=== PATIENT | female | born 1930 | race Caucasian/White ===

== ENCOUNTER → 2017-02-14 | Outpatient (CLI) | payer OTHER ==
[2017-02-14 11:54] LABS: BUN/CREATININE RATIO 26.25 (6-20)
== END ==
LOC: MOB LAB 10:43
PROVIDERS: ATTEND Nurse Practitioner Family
DX: E03.9 Hypothyroidism, unspecified (principal); I10 Essential (primary) hypertension; R09.02 Hypoxemia; I73.9 Peripheral vascular disease, unspecified
CPT/HCPCS: 36415; 80048; 84443; 99213; G0463

== ENCOUNTER → 2017-03-12 | Outpatient (CLI) | payer OTHER ==
--- NOTE | 2017-03-12 17:47 | DI ---
MRI BRAIN W/CN,03/12/2017 10:52 AM: Clinical History: Tumor followup. Previous Exam: September 03, 2016 and April 05, 2016 Findings: Multiplanar MR images are obtained through the brain following the intravenous administration of 12 m L of ProHance gadolinium contrast. There is a curvilinear area of enhancement within the left temporal lobe, which has remained unchange d dating back to March 2016. There is no evidence of hemorrhage there is no mass effect. There is mild stable diffuse age-related volume loss. Intraorbital structures are unremarkable. The paranasal sinus es are unremarkable. Impression: No significant change since the prior examinations.
== END ==
LOC: MRI 10:48
PROVIDERS: ATTEND Radiology Radiation Oncology
DX: D43.0 Neoplasm of uncertain behavior of brain, supratentorial (principal)
CPT/HCPCS: 70552

== ENCOUNTER → 2017-04-25 | Outpatient (CLI) | payer OTHER ==
--- NOTE | 2017-04-25 11:11 | DI ---
VENOUS DOPPLER ULTRASOUND OF THE RIGHT LOWER EXTREMITY, 04/25/2017 10:05 AM: Clinical History: Pain and swelling of the right lower extremity. Previous Exam: None. Technique: 2D real-time imaging is supplemented with color Doppler ultrasound. Compression and augmen tation maneuvers were performed. The long saphenous vein is normal. Reading: No evidence of deep venous thrombosis.
== END ==
LOC: US 09:59
PROVIDERS: ATTEND Internal Medicine Medical Oncology
DX: M79.661 Pain in right lower leg (principal); R22.41 Localized swelling, mass and lump, right lower limb
CPT/HCPCS: 93971

== ENCOUNTER 2017-07-30 11:00 | Observation (INO) ==
[2017-07-30] MEDS ORDERED: Sodium Chloride 0.9% 1,000 ML PRIMARY IV ONE (11:36)
[2017-07-30] MEDS ORDERED: NORMAL SALINE 10 ML SYRINGE FLUSH IVP PRN ×2 (11:36→14:10)
--- NOTE | 2017-07-30 11:54 | EKG ---
[address] [place] [address] Measurements Intervals [place] Rate: 75 P: 77 WV: 167 QRS: -24 QRSD: 139 T: -36 QT: 422 QTc: 452 Interpretive Statements SINUS RHYTHM INDETERMINATE AXIS RIGHT BUNDLE BRANCH BLOCK [120+ ms QRS DURATION, UPRIGHT V1, 40+ ms S IN I/aVL/V4/V5/V6] MODERATE T-WAVE ABNORMALITY, CONSIDER INFERIOR ISCHEMIA [-0.1+ mV T WAVE IN II/aVF] No previous ECG available for comparison Electronically Signed On 07-31-17 08:23:18 MDT by Samuel Gilmore MD [email or web address]
[2017-07-30 12:06] LABS: BASOPHILS # (AUTO) 0.02 10*3/UL; BASOPHILS % (AUTO) 0.2 % (0-1); EOSINOPHILS # (AUTO) 0.12 10*3/UL; EOSINOPHILS % (AUTO) 1.3 % (0-8); Hematocrit [HCT] 44.1 % (37.0-47.0); Hemoglobin [HGB] 14.8 g/dL (12.0-16.0); LYMPHOCYTES # (AUTO) 1.06 10*3/uL; MEAN CORPUSCULAR HEMOGLOBIN 30.6 PG (27-31); MEAN CORPUSCULAR HGB CONC 33.6 g/dL (33-37); MEAN CORPUSCULAR VOLUME 91.1 FL (81-99); MEAN PLATELET VOLUME 10.5 FL (7.4-12.2); MONOCYTES # (AUTO) 0.92 10*3/UL (0.3-0.8); MONOCYTES % (AUTO) 9.7 % (5-15); NEUTROPHILS # (AUTO) 7.38 10*3/UL; NEUTROPHILS % (AUTO) 77.6 % (50-80); PLATELET MORPHOLOGY COMMENT NORMAL MORPHOLOGY (NORM); RBC MORPHOLOGY COMMENT NORMAL MORPHOLOGY (NORM); RED BLOOD COUNT 4.84 10^6/uL (4.20-5.40); WBC MORPHOLOGY COMMENT NORMAL MORPHOLOGY (NORM)
[2017-07-30 12:10] LABS: BLOOD UREA NITROGEN 16 mg/dL (7-22); BUN/CREATININE RATIO 22.85 (6-20); MAGNESIUM 1.9 mg/dL (1.6-2.4); SERUM ALBUMIN 4.7 g/dL (3.5-4.8)
--- NOTE | 2017-07-30 12:38 | DI ---
CT Head WO Contrast,07/30/2017 11:36 AM: Clinical History: Confusion. Previous Exam: December 28, 2015 Findings: Multiple helically acquired CT images are obtained through the brain without contrast, and demonstrat e postsurgical changes of the left temporal lobe consistent with diffuse encephalomalacia. There has been interval removal of a calcified mass arising from the inner table of the temporal bone . There are craniotomy changes within the temporal bone. Impression: 1. No acute intracranial process. 2. Status post craniotomy and left temporal lobe encephalomalacia
[2017-07-30 12:52] LABS: BILIRUBIN,URINE NEGATIVE (NEG); CLARITY,URINE CLEAR (CLEAR); COLOR,URINE YELLOW (Y); GLUCOSE, URINE (UA) NEGATIVE (NEG); NITRATE,URINE NEGATIVE (NEG); OCCULT BLOOD,URINE Trace-intact (NEG); PROTEIN,URINE NEGATIVE (NEG); UROBILINOGEN,URINE 0.2 EU/dL (0.2)
[2017-07-30 12:55] LABS: RBC,URINE 0-1 /hpf; SQUAMOUS EPITHELIAL CELL,UR RARE; URINE SAMPLE TYPE CLEAN CATCH URINE; WBC,URINE 0-1
--- NOTE | 2017-07-30 13:18 | PDOC ---
General Adult HPI - General Chief Complaint: General Medical Stated Complaint: CONFUSED Date Seen by Provider: 07/30/17 Time Seen by Provider: 11:10 Source: POSITIVE: Patient, Other (daughter) Exam Limitations: POSITIVE: No limitations Nurse's Notes Reviewed & Considered: Yes - History of Present Illness Initial Comment: The patient is an 87-year-old female who is brought to the emergency department by her daughter with concerns about increased confusion and difficulty with her speech. The patient's daughter reports that when she went to check on her this morning she noticed that she seemed more confused than usual. She also seems to be using the wrong words that times which is not normal for her. On arrival the patient states that she feels well and has no complaints. The patient's daughter reports that she did have a brain tumor that was removed a year and a half ago in [place] and she did undergo some prophylactic chemotherapy treatments afterward. All of these have been completed last year. The patient currently denies any headache, change in vision, chest pain, shortness of breath , abdominal pain, urinary complaints, fever, recent trauma or illness. She normally uses a walker to ambulate and she seems baseline in her ambulation. Have you received a tetanus shot in the past 10 years?: Unknown - Patient Home Medications Home Medications: Home Medications Oxygen (O2) 1 unit RICHAR DAILY #2 unit 08/09/15 Levothyroxine Sodium 1 tab PO QD #30 tab 02/14/17 Olmesartan/Hydrochlorothiazide [Benicar Hct] 1 tab PO QD #30 tab 02/14/17 - Patient Allergies Allergies/Adverse Reactions: Allergies 3 Allergy/AdvReac Type Severity Reaction Status Date / Time METHIOLATE Allergy Intermediate RASH Uncoded 07/30/17 14:53 Past Medical History - heen HEENT History: Denies History Cardiovascular History: Hypertension, DVTs Respiratory History: Home Oxygen Use Gastrointestinal History: Denies History Genitourinary History: Denies History Endocrine History: Hypothyroidism Musculoskeletal History: Other (please comment) Additional Musculoskeletal History: USES WALKER Neurological History: Other (please comment) Additional Neurological History: BENIGN BRAIN TUMOR Blood Disorders: Denies History Psychiatric History: Denies History Female Reproductive History: Denies History Obstetrical History: Denies History Cancer History: Denies History In Past Year Been Physically Harmed or Verbally Threatened: No History of MDRO: No Tobacco Use: Never Smoker Alcohol Use: None In the Past 12 Months, Have Used or Abuse Any Substance: None Previous Surgical History: No Significant Family History: No pertinent family hx Past Medical History Reviewed: Reviewed - No Changes ROS - Limitations ROS Limitations: No Limitations Constitution: DENIES: Chills, Fever Cardiovascular: DENIES: Chest Pain, Heart Racing, Heart Palpitations, Edema Respiratory: REPORTS: Other (She does apparently wear oxygen at home however not all the time.). DENIES: Cough Non Productive, Cough Productive, Shortness Of Breath Neurological: REPORTS: Confusion. DENIES: Headache, Numbness, Weakness Gastrointestinal: DENIES: Abdominal Pain, Nausea, Vomitting, Diarrhea Endocrine: REPORTS: Denies Symptoms Musculoskeletal: REPORTS: Denies MS Symptoms Genitourinary: REPORTS: Denies Symptoms Eyes: REPORTS: Denies Symptoms ENT: REPORTS: Denies Symptoms Skin: DENIES: Rash General Adult Exam - General Appearance General Appearance: POSITIVE: Alert, Cooperative, No Acute Distress - HEENT HEENT: POSITIVE: Head Inspection Nml, Eyes Inspection Nml, Ears Inspection Nml, Pharynx Inspect. Nml, PERRL, EOMI - Neck Neck: POSITIVE: Normal Inspection. NEGATIVE: Lymphadenopathy - Respiratory Respiratory: POSITIVE: No Respiratory Distress, Breath Sounds Normal - Cardiovascular Cardiovascular: POSITIVE: Regular Rate & Rhythm, No Murmur Peripheral Pulses: Dorsalis-pedis (R): 2+, Dorsalis-pedis (L): 2+ - Abdomen Abdomen: Soft: (All Quadrants), Denies Tenderness: (All Quadrants), No Distention: (All Quadrants) - Skin Skin: POSITIVE: Normal Color, No Rash - Extremities Extremity: Normal ROM: (All Extremities), Normal Inspection: (All Extremities) - Neurological / Psychological Neurological: POSITIVE: Other (The patient is awake and alert, she does not have any apparent focal deficits in the extremities, cranial nerves appear to be intact. The patient's speech is normal for the most part however at times she gets lost in her responses and she has a difficult time finding words at times. She also uses inappropriate words such as referring to her pants as her coat and her oxygen as [place] in her nose.) General Adult Progress - Results Reviewed by me Xrays/CTs/US Reviewed by me: Yes Discussed with Radiologist: Yes Radiology Findings: CT scan of the head without contrast reveals postsurgical changes from previous tumor removal with no acute intracranial hemorrhage or acute findings per radiologist. Lab Results Reviewed by Me: Yes CBC and BMP: 07/30/17 11:47 07/30/17 11:47 EKG Interpretation:: POSITIVE: Normal Sinus Rhythm, Normal Rate, Normal ST/T, Other (Right bundle branch block) - Patient's Progress MDM / ED Course: Lab work, urinalysis, EKG and head CT were obtained. These are all essentially unremarkable. The patient continues to have difficulty finding certain words. There is some concern that she may have had a small CVA. I did recommend admission for further workup and evaluation. Dr. Thompson has agreed to admit the patient for observation. He did recommend ordering an MRI of the brain and MRA of the carotids which was done however will not be done until later this afternoon. These findings and recommendations were discussed with the patient and her daughter and they are in agreement with current plan. - Consult Counseled: POSITIVE: Patient, Family, RE: Lab Results, RE: Radiology Results, RE : DX Patient Care Time - Estimated PCT Patient Care Time (In Minutes): 35 Vital Signs - Recent Vital Signs Vital Signs: Vital Signs (Last 8 hours) Temp Pulse Resp BP Pulse Ox 07/30/17 15:51 91 07/30/17 11:01 98.9 F 82 18 168/92 92 - VS Reviewed Vital Signs Reviewed: Yes Discharge Clinical Impression: Altered mental status Discharge Disposition: Admit to Observation Condition: Fair
[2017-07-30] MEDS ORDERED: OLMESARTAN PO SCH (14:10)
[2017-07-30] MEDS ORDERED: ONDANSETRON 4 MG/2 ML VIAL IVP PRN (14:10)
[2017-07-30] MEDS ORDERED: HYDROCHLOROTHIAZIDE PO SCH (14:10)
[2017-07-30] MEDS ORDERED: LIDOCAINE W/ SODIUM BICARB 0.5 ML SYR SUBD PRN (14:10)
[2017-07-30] MEDS ORDERED: IBUPROFEN 600 MG TABLET PO PRN (14:10)
[2017-07-30] MEDS: Sodium Chloride 0.9% 1,000 ML PRIMARY IV SCH (15:30)
--- NOTE | 2017-07-30 16:37 | PDOC ---
HPI - History of Present Illness History of Present Illness: This very nice 87-year-old female with past medical history significant for brain mass cancer which was removed surgically and had some prophylactic chemotherapy this all have been the completed last year she was brought to the emergency room because her daughter was concerned about her being confused and with some difficulty with her speech. She seems stable at present time she denies any chest pain nausea vomiting vision changes or headaches. Last 2 MRIs were reviewed there is no significant change CT scan of her head no bleed as we speak she is in the MRI scanner Past Medical History Medical History: Hypothyroidism Surgical History: Status post brain cancer resection with prophylactic chemotherapy in 2016 Past Social History: no alcohol or tobacco use lives at [facility] Tobacco Use: Never Smoker In the Past 12 Months, Have Used or Abuse Any of the Following Substance: None Medication / Allergies Home Medications: Home Medications Medication Instructions Recorded Confirmed Type Oxygen (O2) 1 unit RICHAR DAILY #2 unit 08/09/15 07/30/17 History Levothyroxine Sodium 1 tab PO QD #30 tab 02/14/17 07/30/17 Rx Olmesartan/Hydrochlorothiazide 1 tab PO QD #30 tab 02/14/17 07/30/17 Rx [Benicar Hct] Allergies/Adverse Reactions: Allergies 3 Allergy/AdvReac Type Severity Reaction Status Date / Time METHIOLATE Allergy Intermediate RASH Uncoded 07/30/17 14:53 Review of Systems - Review of Systems All Systems: Reviewed & No Additional Complaints Except as Stated - Respiratory Respiratory: DENIES: Negative System Review, Cough, Sputum, Dyspnea At Rest, Dyspnea with Exertion, Pleuritic Pain, Hemoptysis, Wheezing, Other, See HPI - Cardiovascular Cardiovascular: DENIES: Negative System Review, Chest Pain, Edema, Syncope, Palpitations, Orthopnea, Paroxysmal Nocturnal Dyspnea, Other, See HPI - Gastrointestinal Gastrointestinal / Abdominal: DENIES: Negative System Review, Nausea, Vomiting, Diarrhea, Constipation, Abdominal Pain, Bloody Stool, Poor Appetite, Heartburn, Regurgitation, Bloating, Lactose Intolerance, Melena, Bright Red Blood per Rectum, Other, See HPI - Musculoskeletal Musculoskeletal: DENIES: Negative System Review, Back Pain, Neck Pain, Joint Swelling, Calf Pain, Muscle Pain, Cramping, Joint Pain - Hands, Joint Pain - Elbows, Joint Pain - Shoulders, Joint Pain - Hips, Joint Pain - Knees, Joint Pain - Feet, AM Stiffness, Other, See HPI - Neurological Neurologic: REPORTS: Confusion Exam - Vitals Vital Signs: Vital Signs Pulse Rate [Apical] 84 Respiratory Rate 20 Pulse Ox 91 Oxygen Flow Rate 91 Oxygen Delivery Method Room Air Height 4 ft 9 in Weight 141 lb - General General Appearance: No Acute Distress, Cooperative - Head Head Exam: Normal Inspection, Normocephalic, Atraumatic - Eye Eye Exam: POSITIVE: PERRL, EOMI - Respiratory Respiratory Exam: POSITIVE: Clear to Auscultation - Bilaterally, Breathing Non Labored, Normal To Percussion, Normal to Percussion and Palpation - Cardiovascular Cardiovascular Exam: POSITIVE: RRR, No Murmur, No Clicks, No Gallops - GI/Abdominal GI/Abdominal Exam: POSITIVE: Normal Bowel Sounds, Non Tender, Non Distended, Soft - Extremities Extremities Exam: POSITIVE: No Clubbing Present, No Edema Present, No Cyanosis Present Results - Labs CBC and BMP: 07/30/17 11:47 07/30/17 11:47 Assessment and Plan - Patient Problems (1) Altered mental status Current Visit: Yes Status: Acute Code(s): R41.82 - Altered mental status, unspecified (2) Hypertension Current Visit: No Status: Acute Code(s): I10 - Essential (primary) hypertension Qualifiers: Hypertension type: essential hypertension Qualified Code(s): I10 - Essential (primary) hypertension - Assessment / Plan Additional Assessment/Plan Details: Altered mental state we will order MRI/MRA may sure patient did not have a CVA this could definitely recommend the TIA and now it is resolving continue to observe patient further treatment according to the MRI scans I just reviewed the MRI scans that no CVA reported
--- NOTE | 2017-07-30 16:51 | DI ---
MRI Brain WO Contrast,07/30/2017 2:56 PM: Clinical History: Confusion Previous Exam: 03/12/2017 and September 03, 2016 Findings: Multiplanar MR images are obtained through the brain without contrast, and demonstrate diffuse age-re lated volume loss. There is some hyperintense T1 curvilinear density involving the periphery of the t emporal lobe most consistent with prior encephalomalacia. This is in an area where there is a prior m ass which has been surgically removed. There is no new neoplasm identified. There are areas of increased FLAIR and T2 signal scattered throughout the white matter bilaterally. The intraorbital structures are unremarkable. Paranasal sinuses are unremarkable as well. There is no mass nor hemorrhage. The cerebellopontine angles are unremarkable. There is no abnormally restricted diffusion. Impression: 1. Postsurgical changes within the left temporal lobe. 2. No acute ischemia. 3. No evidence of neoplasm although this is somewhat limited due to lack of intravenous contrast.
[2017-07-31] MEDS: Sodium Chloride 0.9% 1,000 ML PRIMARY IV SCH ×2 (00:37→10:23)
[2017-07-31 04:44] LABS: BASOPHILS # (AUTO) 0.01 10*3/UL; BASOPHILS % (AUTO) 0.2 % (0-1); EOSINOPHILS # (AUTO) 0.04 10*3/UL; EOSINOPHILS % (AUTO) 0.6 % (0-8); Hematocrit [HCT] 38.3 % (37.0-47.0); Hemoglobin [HGB] 12.6 g/dL (12.0-16.0); LYMPHOCYTES # (AUTO) 0.61 10*3/uL; MEAN CORPUSCULAR HEMOGLOBIN 29.9 PG (27-31); MEAN CORPUSCULAR HGB CONC 32.9 g/dL (33-37); MEAN CORPUSCULAR VOLUME 90.8 FL (81-99); MEAN PLATELET VOLUME 10.5 FL (7.4-12.2); MONOCYTES # (AUTO) 0.43 10*3/UL (0.3-0.8); MONOCYTES % (AUTO) 6.5 % (5-15); NEUTROPHILS # (AUTO) 5.55 10*3/UL; NEUTROPHILS % (AUTO) 83.3 % (50-80); RED BLOOD COUNT 4.22 10^6/uL (4.20-5.40)
[2017-07-31 05:17] LABS: PLATELET MORPHOLOGY COMMENT NORMAL MORPHOLOGY (NORM); RBC MORPHOLOGY COMMENT NORMAL MORPHOLOGY (NORM); WBC MORPHOLOGY COMMENT SEE COMMENTS (NORM)
[2017-07-31] MEDS ORDERED: LEVOTHYROXINE 25 MCG TABLET PO SCH (05:30)
[2017-07-31] MEDS ORDERED: BENAZEPRIL 10 MG TABLET PO SCH (09:00)
[2017-07-31] MEDS ORDERED: OXYGEN 1 UNIT ENOS SCH (09:00)
[2017-07-31] MEDS ORDERED: AmLODIPine Tab 5 MG TABLET PO SCH (09:00)
[2017-07-31 12:03] VITALS: BP 119/62; RESP 20; TEMP 97.6; O2SAT 97
--- NOTE | 2017-07-31 12:30 | DCSUMMARY ---
Hospitalization Summary Admit Date: 07/30/17 Discharge Date: 07/31/17 Primary Diagnosis:: TIA Secondary Diagnosis:: Confusion Hospital Course: Final Discharge Diagnosis: Current Visit Problems Problem Status Onset Code Altered mental status Acute R41.82 Diagnostic Data, Laboratory Data, and Procedures of Signifigance: Laboratory Results 07/30/17 07/30/17 07/30/17 Range/Units 11:47 11:47 11:47 WBC 9.51 (4.8-10.8) 10^3/uL RBC 4.84 (4.20-5.40) 10^6/uL Hgb 14.8 (12.0-16.0) g/dL Hct 44.1 (37.0-47.0) % MCV 91.1 (81-99) FL MCH 30.6 (27-31) PG MCHC 33.6 (33-37) g/dL RDW Std Deviation 45.1 (39-50) fL RDW Coeff of Gwen 13.7 (11.5-14.5) % Plt Count 266 (140-350) 10*3/uL MPV 10.5 (7.4-12.2) FL Immature Gran % (Auto) 0.1 (0-5) % Neut % (Auto) 77.6 (50-80) % Lymph % (Auto) 11.1 (10-50) % [place] % (Auto) 9.7 (5-15) % Eos % (Auto) 1.3 (0-8) % Baso % (Auto) 0.2 (0-1) % Immature Gran # (Auto) 0.01 10*3/UL Neut # (Auto) 7.38 10*3/UL Lymph # (Auto) 1.06 10*3/uL [place] # (Auto) 0.92 H (0.3-0.8) 10*3/UL Eos # (Auto) 0.12 10*3/UL Baso # (Auto) 0.02 10*3/UL WBC Morphology Comment Normal morphology (NORM) Plt Morphology Comment Normal morphology (NORM) RBC Morph Comment Normal morphology (NORM) Sodium 140 (135-145) meq/L Potassium 4.1 (3.8-5.2) meq/L Chloride 99 (98-112) meq/L Carbon Dioxide 28 (23-33) meq/L Anion Gap 13 (5-20) BUN 16 (7-22) mg/dL Creatinine 0.7 (0.50-1.20) mg/dL BUN/Creatinine Ratio 22.85 H (6-20) Glucose 96 (78-110) mg/dL Calculated Osmolality 290.0 (267-292) mOsm/kg Calcium 10.4 (8.7-10.7) mg/dL Magnesium 1.9 (1.6-2.4) mg/dL Total Bilirubin 0.7 (0.3-1.2) mg/dL AST 37 (8-39) IU/L ALT 33 (9-52) IU/L Alkaline Phosphatase 128 H (38-126) IU/L Troponin I < 0.012 (< 0.040) ng/mL C-Reactive Protein < 0.5 (0.0-0.9) mg/dL Total Protein 8.0 (6.1-8.0) g/dL Albumin 4.7 (3.5-4.8) g/dL Globulin 3.3 (2.50-4.10) g/dL Albumin/Globulin Ratio 1.40 (1.3-2.0) mg/g TSH (0.2700-4.2000) uIU/mL Ur Collection Type Urine Color (Y) Urine Clarity (CLEAR) Urine pH (5.0-8.5) Ur Specific [place] (1.005-1.030) Urine Protein (NEG) mg/dl Urine Glucose (UA) (NEG) mg/dL Urine Ketones (NEG) Urine Occult Blood (NEG) Urine Nitrate (NEG) Urine Bilirubin (NEG) Urine Urobilinogen (0.2) EU/dL Ur Leukocyte Esterase (NEG) Urine RBC (NONE) /hpf Urine WBC (NONE) Ur Squamous Epith Cells (NONE) Ur Renal Epithelial Cell (NONE) Urine Crystals Urine Bacteria (NONE) Urine Casts (NONE) Urine Mucus (NONE) Urine Trichomonas (NONE) Urine Yeast (NONE) Ur Culture Indicated? 07/30/17 07/30/17 07/30/17 Range/Units 11:47 12:45 14:34 WBC (4.8-10.8) 10^3/uL RBC (4.20-5.40) 10^6/uL Hgb (12.0-16.0) g/dL Hct (37.0-47.0) % MCV (81-99) FL MCH (27-31) PG MCHC (33-37) g/dL RDW Std Deviation (39-50) fL RDW Coeff of Gwen (11.5-14.5) % Plt Count (140-350) 10*3/uL MPV (7.4-12.2) FL Immature Gran % (Auto) (0-5) % Neut % (Auto) (50-80) % Lymph % (Auto) (10-50) % [place] % (Auto) (5-15) % Eos % (Auto) (0-8) % Baso % (Auto) (0-1) % Immature Gran # (Auto) 10*3/UL Neut # (Auto) 10*3/UL Lymph # (Auto) 10*3/uL [place] # (Auto) (0.3-0.8) 10*3/UL Eos # (Auto) 10*3/UL Baso # (Auto) 10*3/UL WBC Morphology Comment (NORM) Plt Morphology Comment (NORM) RBC Morph Comment (NORM) Sodium (135-145) meq/L Potassium (3.8-5.2) meq/L Chloride (98-112) meq/L Carbon Dioxide (23-33) meq/L Anion Gap (5-20) BUN (7-22) mg/dL Creatinine (0.50-1.20) mg/dL BUN/Creatinine Ratio (6-20) Glucose (78-110) mg/dL Calculated Osmolality (267-292) mOsm/kg Calcium (8.7-10.7) mg/dL Magnesium (1.6-2.4) mg/dL Total Bilirubin (0.3-1.2) mg/dL AST (8-39) IU/L ALT (9-52) IU/L Alkaline Phosphatase (38-126) IU/L Troponin I 0.016 (< 0.040) ng/mL C-Reactive Protein (0.0-0.9) mg/dL Total Protein (6.1-8.0) g/dL Albumin (3.5-4.8) g/dL Globulin (2.50-4.10) g/dL Albumin/Globulin Ratio (1.3-2.0) mg/g TSH 1.50 (0.2700-4.2000) uIU/mL Ur Collection Type Clean catch urine Urine Color Yellow (Y) Urine Clarity Clear (CLEAR) Urine pH 7.0 (5.0-8.5) Ur Specific [place] 1.020 (1.005-1.030) Urine Protein Negative (NEG) mg/dl Urine Glucose (UA) Negative (NEG) mg/dL Urine Ketones Negative (NEG) Urine Occult Blood Trace-intact H (NEG) Urine Nitrate Negative (NEG) Urine Bilirubin Negative (NEG) Urine Urobilinogen 0.2 (0.2) EU/dL Ur Leukocyte Esterase Trace (NEG) Urine RBC 0-1 (NONE) /hpf Urine WBC 0-1 (NONE) Ur Squamous Epith Cells Rare (NONE) Ur Renal Epithelial Cell None (NONE) Urine Crystals None Urine Bacteria None (NONE) Urine Casts None (NONE) Urine Mucus None (NONE) Urine Trichomonas None (NONE) Urine Yeast None (NONE) Ur Culture Indicated? Culture not set 07/30/17 07/31/17 Range/Units 20:00 04:39 WBC 6.65 (4.8-10.8) 10^3/uL RBC 4.22 (4.20-5.40) 10^6/uL Hgb 12.6 (12.0-16.0) g/dL Hct 38.3 (37.0-47.0) % MCV 90.8 (81-99) FL MCH 29.9 (27-31) PG MCHC 32.9 L (33-37) g/dL RDW Std Deviation 44.0 (39-50) fL RDW Coeff of Gwen 13.6 (11.5-14.5) % Plt Count 225 (140-350) 10*3/uL MPV 10.5 (7.4-12.2) FL Immature Gran % (Auto) 0.2 (0-5) % Neut % (Auto) 83.3 H (50-80) % Lymph % (Auto) 9.2 L (10-50) % [place] % (Auto) 6.5 (5-15) % Eos % (Auto) 0.6 (0-8) % Baso % (Auto) 0.2 (0-1) % Immature Gran # (Auto) 0.01 10*3/UL Neut # (Auto) 5.55 10*3/UL Lymph # (Auto) 0.61 10*3/uL [place] # (Auto) 0.43 (0.3-0.8) 10*3/UL Eos # (Auto) 0.04 10*3/UL Baso # (Auto) 0.01 10*3/UL WBC Morphology Comment See comments (NORM) Plt Morphology Comment Normal morphology (NORM) RBC Morph Comment Normal morphology (NORM) Sodium (135-145) meq/L Potassium (3.8-5.2) meq/L Chloride (98-112) meq/L Carbon Dioxide (23-33) meq/L Anion Gap (5-20) BUN (7-22) mg/dL Creatinine (0.50-1.20) mg/dL BUN/Creatinine Ratio (6-20) Glucose (78-110) mg/dL Calculated Osmolality (267-292) mOsm/kg Calcium (8.7-10.7) mg/dL Magnesium (1.6-2.4) mg/dL Total Bilirubin (0.3-1.2) mg/dL AST (8-39) IU/L ALT (9-52) IU/L Alkaline Phosphatase (38-126) IU/L Troponin I < 0.012 (< 0.040) ng/mL C-Reactive Protein (0.0-0.9) mg/dL Total Protein (6.1-8.0) g/dL Albumin (3.5-4.8) g/dL Globulin (2.50-4.10) g/dL Albumin/Globulin Ratio (1.3-2.0) mg/g TSH (0.2700-4.2000) uIU/mL Ur Collection Type Urine Color (Y) Urine Clarity (CLEAR) Urine pH (5.0-8.5) Ur Specific [place] (1.005-1.030) Urine Protein (NEG) mg/dl Urine Glucose (UA) (NEG) mg/dL Urine Ketones (NEG) Urine Occult Blood (NEG) Urine Nitrate (NEG) Urine Bilirubin (NEG) Urine Urobilinogen (0.2) EU/dL Ur Leukocyte Esterase (NEG) Urine RBC (NONE) /hpf Urine WBC (NONE) Ur Squamous Epith Cells (NONE) Ur Renal Epithelial Cell (NONE) Urine Crystals Urine Bacteria (NONE) Urine Casts (NONE) Urine Mucus (NONE) Urine Trichomonas (NONE) Urine Yeast (NONE) Ur Culture Indicated? 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 Comes in with some confusion about the being oriented to person and place she does have a past medical history of hypertension which was a little uncontrolled. MRI of her head revealed no CVA no acute changes CT scan of her head also revealed no acute changes patient today was back to her normal self oriented to person time and place does remember what happened yesterday and is wanting to go home I did discuss the case with the daughter and she will be picked up this evening after her she is off work. I've also added Norvasc 5 mg for better control her blood pressure and prescription will be faxed to her pharmacy On the date of discharge, the patient was examined: Gen.: No acute distress, alert, nontoxic Heart: Regular rate and rhythm, no murmurs, clicks, gallops, or rubs Lungs: Clear to auscultation bilaterally, breathing is nonlabored Abdomen/GI: Normal tones on auscultation, soft, nontender, nondistended Musculoskeletal/extremities: No clubbing, cyanosis, or edema Vitals reviewed and are listed below Assessment and Plan: 1. As per discharge assessments above 2. Disposition: Home 3. Condition on discharge, stable and improved. 4. Diet: regular diet 5. Activities: resume normal activities 6. Follow-Up: 1. PCP tomorrow if all can 2. 7. Medications at the Time of Discharge: 8. Time, care, counseling and coordination of care for this discharge is greater than 30 minutes. Exam - Vitals Vital Signs: Vital Signs Temperature 97.6 F Temperature Source Temporal Artery Scan Pulse Rate [Apical] 84 Pulse Rate [Pulse Oximeter 69 Right] Pulse Rate 70 Respiratory Rate 20 Blood Pressure [Left Arm] 119/62 Pulse Ox 97 Oxygen Flow Rate 1 Oxygen Delivery Method Nasal Cannula Height 4 ft 9 in Weight 142 lb 9.6 oz Patient Problems - Patient Problem List (1) Altered mental status Current Visit: Yes Status: Acute Code(s): R41.82 - Altered mental status, unspecified Category: Medical (2) Hypertension Current Visit: No Status: Acute Code(s): I10 - Essential (primary) hypertension Qualifiers: Hypertension type: essential hypertension Qualified Code(s): I10 - Essential (primary) hypertension Category: Medical
--- NOTE | 2017-07-31 14:32 | DI ---
MRI MRA Neck WO Contrast,07/30/2017 1:45 PM: Clinical History: Confusion and speech difficulty. Previous Exam: None at this facility. Findings: Multiplanar MR images are obtained through the neck following a 2-D [id number] protocol, and demo nstrate normal proximal common carotid arteries. The origin of the left common carotid artery is not well seen. There are origin the right common carotid artery is also not well seen. This is believed t o be due to tortuosity of the origins. The 3-D images demonstrate signal dropout, but this is also likely due to tortuosity of the carotid s iphons. The carotid bulbs demonstrates some mild signal dropout especially on the left corresponding with walter roximately 50% stenosis of the external carotid artery. The internal carotid artery on the left demon strates normal course and caliber without filling defects. Visualized portions of the [place] are unremarkable. There is some irregularity of the distal internal carotid arteries as it enters the base of the skull measuring approximately 50% stenosis bilaterally. The vertebral arteries are normal. The basilar artery is normal. Impression: 1. 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 T his could be due to signal dropout from 2-D [id number] images with tortuosity of the vessels.
--- NOTE | 2017-07-31 14:35 | DI ---
MRI MRA Head WO Contrast,07/30/2017 1:45 PM: Clinical History: Confusion Previous Exam: None at this facility. Findings: Multiplanar MR images are obtained through the [place] following a 3-D [id number] protoc ol, and demonstrate a normal-appearing [place]. There is no aneurysmal dilation. The anterio r cerebral arteries are normal. The anterior communicating artery is also normal. The middle cerebral arteries and posterior cerebral arteries are normal. The posterior indicating art eries are diminutive bilaterally. The basilar artery and visualized portions of vertebral arteries are unremarkable. Impression: Normal MRA brain.
--- NOTE | 2017-07-31 14:55 | OTI REPORT ---
Thank you for the referral of Su Law. She was seen on 07/31/17 for an occupational therapy inpatient evaluation secondary to having an altered mental status and hypertension. SUBJECTIVE: The patient is an 87-year-old female who is being seen secondary to having altered mental status and hypertension. 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 The patient reports that she lives at home alone in the [facility] near the [facility]. The patient reports that she walks daily to the [facility] to have her meals and on Sundays she usually orders food from the hospital. Su states she rarely cooks but does cook eggs on the stovetop in the mornings. Her bathroom is set up with a walk in shower; she does not sit on a chair, she tends to stand and use the grab bars. The patient has a comfort height toilet. Typically she is on one liter of oxygen and has a front wheeled walker. Prior to admission the patient was independent with laundry, light cooking, and grocery shopping. The patient rides the [facility] bus to go to the grocery store; she does not drive on her own. The patient does have a cleaning lady who comes one time a week to help clean her apartment. The patient does not have any other assistance such as family or friends to help her. The patient reports that she swallows food and liquids well; she does not have any swallowing issues. The patient is in charge of her own medication intake which includes two pills; a blood pressure medicine and a thyroid medicine. PAST MEDICAL HISTORY: Past medical history can be found in the patient's medical record. OBJECTIVE FINDINGS: Activities of daily living: The patient was able to don her pants and undergarments independently but she does need a sock aide to don her socks. We did not issue the patient a new sock aide as she already has one at home. The patient seemed physically able to do this today. Strength: The patient's strength in the upper extremities was 4/5 for shoulder flexion, 3+/5 for shoulder abduction, 3+/5 for external rotation, and 4+/5 for internal rotation. Pain: The patient reports that she does have a little bit of pain in her back but overall she is doing well. MS aphasia screening: Because of her altered mental status, the therapist had the patient participate in the MS aphasia screening test. Namin/10 Automatic speech: 08/20 Repetition: 06/20 Writin/10 Verbal fluency: 08/20 (Total expressive subscale of 48/50) Receptive index: Yes and no accuracy: 20/20 Object recognition: 08/20 Following instructions: 06/20 Reading instructions: 08/20 (Total receptive subscale of 48/50) The total score for the aphasia index was 96/100. The patient was negative for dysarthria, paraphasia, and perseveration and she was present and oriented. ASSESSMENT: The patient did very well with all of the tasks asked of her today. She is probably at baseline level of function for he ADL skills. Her strength is slightly weak, but her aphasia test came back as excellent. It was observed throughout the session today that the patient did confuse approximately two words but was able to self correct. Her expressive aphasia is very minimal and she was able to have a great conversation with the therapist today by finding the correct words. Problem List: Upper extremity weakness Decreased ability to perform ADLs Decreased ability to perform functional transfers Short-Term Goals: To be met by discharge from inpatient: Patient will improve upper extremity strength to 4+/5. Patient will be independent with a home exercise program. Patient will be able to obtain clothes and dress self with modified independence with use of sock aide without loss of balance. Patient will be able to participate in conversation 100% of the time and retrieve words throughout session. Long-Term Goals: To be met following discharge from inpatient: Patient will be discharged home, demonstrating independence and safety with all functional activities and ADLs. TREATMENT PLAN: Patient will be seen B.I.D during the week and one time per day over the weekend as an inpatient to address the above goals and objectives. INITIAL TREATMENT: Treatment today consisted of the initial evaluation followed by the aphasia screening test and addressing ADLs. DARIO
--- NOTE | 2017-07-31 15:12 | PTI REPORT ---
Thank you for the referral of Su Law. She was seen on 07/31/17 for an inpatient evaluation secondary to weakness. SUBJECTIVE: The patient is an 87-year-old female. The patient reports that she was taken to the hospital by her daughter because she was experiencing confusion and difficulty with speech. Su denies feeling dizziness at the time. The patient states that she is currently not experiencing symptoms of confusion or difficulty with speech. The patient reports that she lives in an apartment and uses an elevator to get to her second floor apartment. She denies having to walk up stairs. The patient states that she lives within walking distance of the [facility] and that she goes there five days a week. The patient states that she has hand rails in her bathroom to assist her with toilet transfers and that she has a short lip on her shower that she can step over to get into her shower. The patient states that she can complete most tasks at home independently. She states that she rides the [employer] bus to go to the grocery store and that she has assistance one time a week with cleaning her apartment. PAST MEDICAL HISTORY: Past medical history can be found in the patient's medical record. OBJECTIVE FINDINGS: General observations: The patient was alert and oriented and sitting up in reclining chair with one liters of oxygen. Transfers/Ambulation: The patient required contact guard assist to transfer from sit to stand and contact guard assist with walker assistive device during ambulation. Strength: Gross lower extremity manual muscle testing revealed strength of 3/5 for bilateral lower extremities. Findings for 5 time sit to stands was 25.9 seconds. Timed get up and go with contact guard assist and walker was 33 seconds. ASSESSMENT: The patient has a fair prognosis secondary to past medical history of brain tumor. The patient's timed get up and go and sit to stand scores increase her risk of falls. The patient also required cueing for safety with assistive device. Problem List: Decreased dynamic balance Decreased endurance Decreased strength Short-Term Goals: To be met by discharge from inpatient: Patient will decrease her timed get up and go test and sit to stand x5 scores by at least 10 seconds. Patient will demonstrate compliance with safety precautions with her walker. Long-Term Goals: To be met following discharge from inpatient: Patient will be seen by outpatient physical therapy. TREATMENT PLAN: Patient will be seen B.I.D during the week and one time per day over the weekend as an inpatient until discharge. INITIAL TREATMENT: Treatment today consisted of the initial evaluation followed by ambulation with contact guard assist x2 and walker x100 feet. Dictated by: SONIDO Parham Supervised by: FIDELINA Mendoza
--- NOTE | 2017-07-31 15:13 | PT.PROG ---
Progress Note Progress Note: S. Patient stated that she doesn't want to go to the therapy gym this afternoon because she is going home this afternoon. O. Patient ambulated 300 feet around the nurses station then performed seated exercises in the form of; long arc quads, heel toe raises, marches, sit to stands all x 10 bilaterally. Patient was left in chair with alarm and call light. A. Patient tolerated therapy well this afternoon, Patient continues to gain strength and endurance. P. Continue POC until Discharge.
--- NOTE | 2017-07-31 16:25 | OT.PROG ---
Progress Note Progress Note: S: pt stated she did not want to go down stairs for therapy because she had no cloths and she was going home soon. O: pt was seen in her room in the p.m. and was upright in chair. She completed UE exercises with RTB in all planes including bicep flex, shoulder flex/ext, iROT/EROT, tricep ext all x15 with BUE's to increase strength. A: Pt has completed therapy well and may recommend pt d/c to home as she appears to be safe and cognitive ability is good. P: Pt may d/c to her home setting when medically cleared.
== END 2017-07-31 16:53 | disposition home or self-care (01) ==
LOC: MED/SURG 11:00 → ER 11:00
PROVIDERS: ADMIT Internal Medicine; ATTEND Internal Medicine

== ENCOUNTER 2018-04-22 09:28 | Inpatient (IN) ==
--- NOTE | 2018-04-22 09:47 | PDOC ---
Altered Mental Status HPI - General Chief Complaint: Altered Mental Status Stated Complaint: possible stroke Date Seen by Provider: 04/22/18 Time Seen by Provider: 09:39 Source: POSITIVE: Patient, EMS, Other (Daughter) Exam Limitations: POSITIVE: Clinical condition Nurse's Notes Reviewed & Considered: Yes EMS Report Reviewed & Considered: Verbal - History of Present Illness Initial Comments: This is a well-developed, well-nourished, 87-year-old female who has strokelike symptoms. Patient was found by assisted living staff to be altered and not making sense with her speech. They reported left-sided facial droop which had resolved by the time EMS arrived. EMS transported the patient here with a line in place in her right hand. She is alert and oriented only to person, not to place or time. She is unable to provide any information or insight into what may be occurring. She is very neat, clean and well groomed. Last known time that patient was found to be normal was last night. 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 Ability to Stand, Decreased Ability to Walk, Multiple Falls, Off Balance, Fainting, Dizziness, Involuntary Movements, Seizure, Headache, Other Similar Symptoms Previously: Yes Recent Care Received: REPORTS: Denies Any Prior Injuries Related to Current Complaint?: No - Patient Home Medications Home Medications: Home Medications Oxygen (O2) 1 unit RICHAR DAILY #2 unit 08/09/15 amlodipine 5 mg tablet 5 mg PO QHS #30 tab 02/13/18 levothyroxine 25 mcg tablet 25 mcg PO QD #30 tab 02/13/18 - Patient Allergies Allergies/Adverse Reactions: Allergies 3 Allergy/AdvReac Type Severity Reaction Status Date / Time METHIOLATE Allergy Intermediate RASH Uncoded 04/22/18 09:46 Past Medical History - heen HEENT History: Denies History Cardiovascular History: Hypertension, DVTs Respiratory History: Home Oxygen Use Gastrointestinal History: Denies History Genitourinary History: Denies History Endocrine History: Hypothyroidism Musculoskeletal History: Other (please comment) Additional Musculoskeletal History: USES WALKER Neurological History: Other (please comment) Additional Neurological History: BENIGN BRAIN TUMOR Blood Disorders: Denies History Psychiatric History: Denies History Cancer History: Denies History History of MDRO: No Alcohol Use: None In the Past 12 Months, Have Used or Abuse Any Substance: None Previous Surgical History: No Type / Date of Surgery: REMOVAL BRAIN TUMOR. THR. ORIF LEFT WRIST Significant Family History: No pertinent family hx ROS - Limitations ROS Limitations: Clinical Condition (Patient is very confused and unable to provide information. Review of systems is unavailable.) Altered Mental Physical Exam - General Appearance General Appearance: POSITIVE: Alert, Cooperative, No Acute Distress, No Evidence of Trauma - HEENT HEENT: POSITIVE: Head Inspection Nml, Eyes Inspection Nml, Ears Inspection Nml, Nose Inspection Nml, Oral/Dental Inspect. Nml, Pharynx Inspect. Nml, PERRL, EOMI - Pupil Size Pupil Size: 4 mm: Bilateral - Neuro/Psych Neurological: POSITIVE: Confusion Cranial Nerves: POSITIVE: Normal As Tested Cerebellar: POSITIVE: Other (Unable to evaluate secondary to the patient's confusion and inability to follow directions.) Peripheral Exam: POSITIVE: No Motor Deficits, No Sensory Deficits, Reflexes Normal Reflexes: Patellar (R): 2+, Patellar (L): 2+, Radial (R): 3+, Radial (L): 3+ - Neck Neck: POSITIVE: Supple, Non Tender - Respiratory Respiratory: POSITIVE: No Respiratory Distress, Breath Sounds Normal - Cardiovascular CVS: POSITIVE: Regular Rate and Rhythm, Heart Sounds Normal Procedure - Lumbar Puncture Risks, Benefits, & Alternatives Discussed: Yes Parent / Guardian Consent Obtained: Yes Lumbar Puncture Technique: POSITIVE: Sitting Lumbar Puncture Color: POSITIVE: Other (Unable to gain access into the vertebral canal) Procedure Note:: Patient was set on the edge of the bed in an erect position and her L4-L5 interspace was identified, marked, prepped with Betadine, and draped in sterile manner. 1% plain lidocaine was infiltrated into the L4-L5 interspace van a spinal needle was attempted to be introduced into the spinal canal. This proved to be futile with repositioning of the needle and 5 attempts. I feel that this is most likely related to the patient's body habitus and likely arthritic changes. Procedure was aborted and radiology was contacted for fluoroscopy guided LP. Altered Mental Status - Results Reviewed By Me Xrays/CTs/US Reviewed: Yes Discussed with Radiologist: Yes Lab Results Reviewed by Me: Yes CBC and BMP: 04/22/18 10:08 04/22/18 10:08 Lab Results:: Laboratory Results 04/22/18 04/22/18 04/22/18 Range/Units 10:00 10:00 10:08 WBC 6.69 (4.8-10.8) 10^3/uL RBC 4.91 (4.20-5.40) 10^6/uL Hgb 14.9 (12.0-16.0) g/dL Hct 44.9 (37.0-47.0) % MCV 91.4 (81-99) FL MCH 30.3 (27-31) PG MCHC 33.2 (33-37) g/dL RDW Std Deviation 47.8 (39-50) fL RDW Coeff of Gwen 14.5 (11.5-14.5) % Plt Count 231 (140-350) 10*3/uL MPV 10.0 (7.4-12.2) FL Immature Gran % (Auto) 0.1 (0-5) % Neut % (Auto) 70.2 (50-80) % Lymph % (Auto) 19.1 (10-50) % Greene % (Auto) 7.9 (5-15) % Eos % (Auto) 2.4 (0-8) % Baso % (Auto) 0.3 (0-1) % Immature Gran # (Auto) 0.01 10*3/UL Neut # (Auto) 4.69 10*3/UL Lymph # (Auto) 1.28 10*3/uL Greene # (Auto) 0.53 (0.3-0.8) 10*3/UL Eos # (Auto) 0.16 10*3/UL Baso # (Auto) 0.02 10*3/UL WBC Morphology Comment Normal morphology (NORM) Plt Morphology Comment Normal morphology (NORM) RBC Morph Comment Normal morphology (NORM) VBG pH (7.32-7.42) VBG pCO2 (45-55) mmHg VBG HCO3 (22-26) mmol/L VBG Base Excess (-2-2) MMOL/L Sodium (135-145) meq/L Potassium (3.8-5.2) meq/L Chloride (98-112) meq/L Carbon Dioxide (23-33) meq/L Anion Gap (5-20) BUN (7-22) mg/dL Creatinine (0.50-1.20) mg/dL BUN/Creatinine Ratio (6-20) Glucose (78-110) mg/dL Calculated Osmolality (267-292) mOsm/kg Lactic Acid (0.70-2.10) MMOL/L Calcium (8.7-10.7) mg/dL Magnesium (1.6-2.4) mg/dL Total Bilirubin (0.3-1.2) mg/dL AST (8-39) IU/L ALT (9-52) IU/L Alkaline Phosphatase (38-126) IU/L CK-MB (CK-2) (0.00-5.00) NG/ML Troponin I Handheld 0.010 (< 0.040) ng/mL NT-Pro-B Natriuret Pep (0-450) PG/ML Total Protein (6.1-8.0) g/dL Albumin (3.5-4.8) g/dL Globulin (2.50-4.10) g/dL Albumin/Globulin Ratio (1.3-2.0) mg/g TSH (0.2700-4.2000) uIU/mL Free T4 (0.93-1.71) ng/dL Ur Collection Type Clean catch urine Urine Color Yellow (Y) Urine Clarity Clear (CLEAR) Urine pH 7.0 (5.0-8.5) Ur Specific [place] 1.015 (1.005-1.030) Urine Protein Negative (NEG) mg/dl Urine Glucose (UA) Negative (NEG) mg/dL Urine Ketones Negative (NEG) Urine Occult Blood Negative (NEG) Urine Nitrate Negative (NEG) Urine Bilirubin Negative (NEG) Urine Urobilinogen 0.2 (0.2) EU/dL Ur Leukocyte Esterase Negative (NEG) Ur Culture Indicated? Culture not set CSF Volume ML CSF Appearance (CLEAR) CSF Color (COLOR) CSF WBC (0-0.010) 10^3/uL CSF RBC (0-0.010) 10^6/uL CSF Glucose (50.0-80.0) mg/dL CSF Total Protein (15.0-45.0) mg/dL CSF Strep pneumoniae Ag (NEG) 04/22/18 04/22/18 04/22/18 Range/Units 10:08 10:08 10:15 WBC (4.8-10.8) 10^3/uL RBC (4.20-5.40) 10^6/uL Hgb (12.0-16.0) g/dL Hct (37.0-47.0) % MCV (81-99) FL MCH (27-31) PG MCHC (33-37) g/dL RDW Std Deviation (39-50) fL RDW Coeff of Gwen (11.5-14.5) % Plt Count (140-350) 10*3/uL MPV (7.4-12.2) FL Immature Gran % (Auto) (0-5) % Neut % (Auto) (50-80) % Lymph % (Auto) (10-50) % Greene % (Auto) (5-15) % Eos % (Auto) (0-8) % Baso % (Auto) (0-1) % Immature Gran # (Auto) 10*3/UL Neut # (Auto) 10*3/UL Lymph # (Auto) 10*3/uL Greene # (Auto) (0.3-0.8) 10*3/UL Eos # (Auto) 10*3/UL Baso # (Auto) 10*3/UL WBC Morphology Comment (NORM) Plt Morphology Comment (NORM) RBC Morph Comment (NORM) VBG pH 7.44 H (7.32-7.42) VBG pCO2 41 L (45-55) mmHg VBG HCO3 28 H (22-26) mmol/L VBG Base Excess 4 H (-2-2) MMOL/L Sodium 142 (135-145) meq/L Potassium 4.0 (3.8-5.2) meq/L Chloride 103 (98-112) meq/L Carbon Dioxide 30 (23-33) meq/L Anion Gap 9 (5-20) BUN 16 (7-22) mg/dL Creatinine 0.6 (0.50-1.20) mg/dL BUN/Creatinine Ratio 26.66 H (6-20) Glucose 95 (78-110) mg/dL Calculated Osmolality 294.0 H (267-292) mOsm/kg Lactic Acid (0.70-2.10) MMOL/L Calcium 9.8 (8.7-10.7) mg/dL Magnesium 1.8 (1.6-2.4) mg/dL Total Bilirubin 0.7 (0.3-1.2) mg/dL AST 20 (8-39) IU/L ALT 28 (9-52) IU/L Alkaline Phosphatase 105 (38-126) IU/L CK-MB (CK-2) 2.48 (0.00-5.00) NG/ML Troponin I Handheld (< 0.040) ng/mL NT-Pro-B Natriuret Pep 221 (0-450) PG/ML Total Protein 7.7 (6.1-8.0) g/dL Albumin 4.4 (3.5-4.8) g/dL Globulin 3.3 (2.50-4.10) g/dL Albumin/Globulin Ratio 1.30 (1.3-2.0) mg/g TSH 2.58 (0.2700-4.2000) uIU/mL Free T4 1.14 (0.93-1.71) ng/dL Ur Collection Type Urine Color (Y) Urine Clarity (CLEAR) Urine pH (5.0-8.5) Ur Specific Pima (1.005-1.030) Urine Protein (NEG) mg/dl Urine Glucose (UA) (NEG) mg/dL Urine Ketones (NEG) Urine Occult Blood (NEG) Urine Nitrate (NEG) Urine Bilirubin (NEG) Urine Urobilinogen (0.2) EU/dL Ur Leukocyte Esterase (NEG) Ur Culture Indicated? CSF Volume ML CSF Appearance (CLEAR) CSF Color (COLOR) CSF WBC (0-0.010) 10^3/uL CSF RBC (0-0.010) 10^6/uL CSF Glucose (50.0-80.0) mg/dL CSF Total Protein (15.0-45.0) mg/dL CSF Strep pneumoniae Ag (NEG) 06/12/18 06/12/18 06/12/18 Range/Units 10:18 17:00 17:00 WBC (4.8-10.8) 10^3/uL RBC (4.20-5.40) 10^6/uL Hgb (12.0-16.0) g/dL Hct (37.0-47.0) % MCV (81-99) FL MCH (27-31) PG MCHC (33-37) g/dL RDW Std Deviation (39-50) fL RDW Coeff of Gwen (11.5-14.5) % Plt Count (140-350) 10*3/uL MPV (7.4-12.2) FL Immature Gran % (Auto) (0-5) % Neut % (Auto) (50-80) % Lymph % (Auto) (10-50) % Greene % (Auto) (5-15) % Eos % (Auto) (0-8) % Baso % (Auto) (0-1) % Immature Gran # (Auto) 10*3/UL Neut # (Auto) 10*3/UL Lymph # (Auto) 10*3/uL Greene # (Auto) (0.3-0.8) 10*3/UL Eos # (Auto) 10*3/UL Baso # (Auto) 10*3/UL WBC Morphology Comment (NORM) Plt Morphology Comment (NORM) RBC Morph Comment (NORM) VBG pH (7.32-7.42) VBG pCO2 (45-55) mmHg VBG HCO3 (22-26) mmol/L VBG Base Excess (-2-2) MMOL/L Sodium (135-145) meq/L Potassium (3.8-5.2) meq/L Chloride (98-112) meq/L Carbon Dioxide (23-33) meq/L Anion Gap (5-20) BUN (7-22) mg/dL Creatinine (0.50-1.20) mg/dL BUN/Creatinine Ratio (6-20) Glucose (78-110) mg/dL Calculated Osmolality (267-292) mOsm/kg Lactic Acid 1.4 (0.70-2.10) MMOL/L Calcium (8.7-10.7) mg/dL Magnesium (1.6-2.4) mg/dL Total Bilirubin (0.3-1.2) mg/dL AST (8-39) IU/L ALT (9-52) IU/L Alkaline Phosphatase (38-126) IU/L CK-MB (CK-2) (0.00-5.00) NG/ML Troponin I Handheld (< 0.040) ng/mL NT-Pro-B Natriuret Pep (0-450) PG/ML Total Protein (6.1-8.0) g/dL Albumin (3.5-4.8) g/dL Globulin (2.50-4.10) g/dL Albumin/Globulin Ratio (1.3-2.0) mg/g TSH (0.2700-4.2000) uIU/mL Free T4 (0.93-1.71) ng/dL Ur Collection Type Urine Color (Y) Urine Clarity (CLEAR) Urine pH (5.0-8.5) Ur Specific [place]ima (1.005-1.030) Urine Protein (NEG) mg/dl Urine Glucose (UA) (NEG) mg/dL Urine Ketones (NEG) Urine Occult Blood (NEG) Urine Nitrate (NEG) Urine Bilirubin (NEG) Urine Urobilinogen (0.2) EU/dL Ur Leukocyte Esterase (NEG) Ur Culture Indicated? CSF Volume Approx. 5 ML CSF Appearance Clear (CLEAR) CSF Color Colorless (COLOR) CSF WBC 0.006 (0-0.010) 10^3/uL CSF RBC 0.002 (0-0.010) 10^6/uL CSF Glucose 53 (50.0-80.0) mg/dL CSF Total Protein 67 H (15.0-45.0) mg/dL CSF Strep pneumoniae Ag Negative (NEG) EKG Interpreted/Reviewed By Me:: Yes (sinus rhythm with a rate of 64 beats a minute and right bundle branch block) EKG Interpretation:: POSITIVE: Normal Sinus Rhythm - Patient's Progress Pain Medication Addressed: POSITIVE: Not Applicable Re-Examine Time:: 13:30 Re-Examine Time: 18:03 Status: POSITIVE: Unchanged Antibiotics Given: No - Consult Consult (If Yes, Name of Consulting MD & Time Called): Yes (Dr. Lehman 12:15 , Dr. Vivar 1800 hrs) Consulting MD will see pt:: POSITIVE: [facility] Admit Counseled: POSITIVE: Patient, Family, RE: Lab Results, RE: Radiology Results, RE : DX - CAP/CVA/Syncope CAP: POSITIVE: Chest X-ray Patient Care Time - Estimated PCT Patient Care Time (In Minutes): 60 Vital Signs - VS Reviewed Vital Signs Reviewed: Yes Discharge Clinical Impression: Altered mental status Condition: Fair Date Decision to Admit to Inpatient: 04/22/18 Time Decision to Admit to Inpatient: 18:04
[2018-04-22] MEDS ORDERED: Sodium Chloride 0.9% 1,000 ML PRIMARY IV ONE (09:56)
[2018-04-22] MEDS ORDERED: ONDANSETRON 4 MG/2 ML VIAL IVP ONE (09:56)
[2018-04-22 10:09] LABS: BILIRUBIN,URINE NEGATIVE (NEG); CLARITY,URINE CLEAR (CLEAR); COLOR,URINE YELLOW (Y); GLUCOSE, URINE (UA) NEGATIVE (NEG); OCCULT BLOOD,URINE NEGATIVE (NEG); PROTEIN,URINE NEGATIVE (NEG); URINE SAMPLE TYPE CLEAN CATCH URINE; UROBILINOGEN,URINE 0.2 EU/dL (0.2)
[2018-04-22 10:14] LABS: BASOPHILS # (AUTO) 0.02 10*3/UL; BASOPHILS % (AUTO) 0.3 % (0-1); EOSINOPHILS # (AUTO) 0.16 10*3/UL; EOSINOPHILS % (AUTO) 2.4 % (0-8); Hematocrit [HCT] 44.9 % (37.0-47.0); Hemoglobin [HGB] 14.9 g/dL (12.0-16.0); LYMPHOCYTES # (AUTO) 1.28 10*3/uL; MEAN CORPUSCULAR HEMOGLOBIN 30.3 PG (27-31); MEAN CORPUSCULAR HGB CONC 33.2 g/dL (33-37); MEAN CORPUSCULAR VOLUME 91.4 FL (81-99); MONOCYTES # (AUTO) 0.53 10*3/UL (0.3-0.8); MONOCYTES % (AUTO) 7.9 % (5-15); NEUTROPHILS # (AUTO) 4.69 10*3/UL; NEUTROPHILS % (AUTO) 70.2 % (50-80); RED BLOOD COUNT 4.91 10^6/uL (4.20-5.40)
[2018-04-22 10:22] LABS: PLATELET MORPHOLOGY COMMENT NORMAL MORPHOLOGY (NORM); RBC MORPHOLOGY COMMENT NORMAL MORPHOLOGY (NORM); WBC MORPHOLOGY COMMENT NORMAL MORPHOLOGY (NORM)
--- NOTE | 2018-04-22 10:23 | EKG ---
[address] [address] Measurements Intervals Bath Rate: 64 P: 65 CO: 136 QRS: -36 QRSD: 138 T: -22 QT: 436 QTc: 445 Interpretive Statements SINUS RHYTHM INDETERMINATE AXIS RIGHT BUNDLE BRANCH BLOCK [120+ ms QRS DURATION, UPRIGHT V1, 40+ ms S IN I/aVL/V4/V5/V6] Inverted T-waves anteriorly Compared to ECG 07/30/2017 11:52:26 Minimal change Electronically Signed On 04-23-18 08:19:28 MDT by Samuel Gilmore MD [id number]
[2018-04-22 10:27] LABS: VENOUS PH 7.44 (7.32-7.42)
[2018-04-22 10:31] LABS: BLOOD UREA NITROGEN 16 mg/dL (7-22); BUN/CREATININE RATIO 26.66 (6-20); SERUM ALBUMIN 4.4 g/dL (3.5-4.8)
--- NOTE | 2018-04-22 10:50 | DI ---
CT Head WO Contrast,04/22/2018 9:56 AM: Clinical History: Confusion Previous Exam: July 30, 2017 Findings: Multiple helically acquired CT images are obtained through the brain without contrast, and demonstrat e stable postsurgical changes within the middle cranial fossa on the left. A few dense calcifications are noted within the left temporal fossa. Patient is status post osteotomy. There is some stable mild prominence of the dura on the left. Diffuse age-related volume loss is seen. Intraorbital structures are unremarkable. The paranasal sinuses are also unremarkable. There is mild rightward deviation of the bony nasal septum. Impression: 1. Diffuse age-related volume loss and postsurgical changes within the left temporal fossa unchanged from the prior exam.
--- NOTE | 2018-04-22 12:00 | DI ---
MRI Brain WO Contrast,04/22/2018 9:56 AM: Clinical History: Stroke symptoms. Previous Exam: None at this facility. Findings: Multiplanar MR images are obtained through the brain without contrast, and demonstrate diffuse age-re lated volume loss. There are stable postsurgical changes of the left parietal region. There is stable increased FLAIR and T2 signal within the temporal lobe. Multiple scattered areas of increased FLAIR and T2 signal is seen in the paraventricular and subcorti grace white matter as well. The major vascular flow voids are unremarkable. The intraorbital structures are unremarkable. Paranasal sinuses are also unremarkable. There is no ab normally restricted diffusion. Degenerative changes of the upper cervical spine are seen. Impression: Large areas of encephalomalacia within the left temporal lobe. Scattered areas of FLAIR and T2 signal as well, unchanged from the prior exam. No acute ischemia.
[2018-04-22] MEDS: Lidocaine 1% 10 MG/ML - 20 ML VIAL SUBCUT ONE ×2 (13:27→15:14)
--- NOTE | 2018-04-22 15:38 | DI ---
XR CXR 2VW PA/LAT,04/22/2018 11:33 AM: Clinical History: Altered mental status Previous Exam: None at this facility. Findings: PA and lateral views of the chest are obtained, and demonstrate elevation the right hemidiaphragm. Th e lungs appear otherwise clear. The cardiac silhouette is enlarged. There is levoscoliosis of the upper thoracic spine. There is no infiltrate nor effusion. Impression: Elevation of right hemidiaphragm Mild cardiomegaly.
[2018-04-22] MEDS ORDERED: LIDOCAINE HCL 2 % 10 ML JELLY URO-JECT TOPICAL PRN (16:10)
--- NOTE | 2018-04-22 17:11 | DI ---
XR FLUORO GUIDE/LOCAL/NDL/CATH,04/22/2018 1:27 PM: Clinical History: Failed lumbar puncture in the emergency room. Previous Exam: None at this facility. Procedure: Risks, benefits and alternatives were explained to the patient. The patient was unable to understand. The ER gave informed consent. The patient was placed prone on the fluoroscopy table and the back prepped and draped in usual steril e fashion. Local anesthesia was provided at the L4/5 level. A 3-1/2 inch, 23-gauge spinal needle was then advanced. Cerebrospinal fluid then immerged, and a tota l of approximately 5 cc of cerebrospinal fluid was removed. The spinal fluid. Slightly cloudy and sli ghtly pink. Needle was removed and a Band-Aid placed over the puncture site. Findings: A single fluoroscopic image demonstrates a spinal needle at the L4/5 level. Impression: Successful lumbar puncture. Cerebral spinal fluid analysis pending.
[2018-04-22 17:46] LABS: APPEARANCE, CSF CLEAR (CLEAR); COLOR, CSF COLORLESS (COLOR)
[2018-04-22] MEDS ORDERED: ONDANSETRON 4 MG/2 ML VIAL IVP PRN (19:18)
[2018-04-22] MEDS ORDERED: LIDOCAINE W/ SODIUM BICARB 0.5 ML SYR SUBD PRN (19:18)
[2018-04-22] MEDS ORDERED: DOCUSATE 100 MG CAPSULE PO PRN (19:18)
[2018-04-22] MEDS ORDERED: ACETAMINOPHEN 325 MG TABLET PO PRN (19:18)
--- NOTE | 2018-04-22 19:26 | PDOC ---
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 They also reported some left-sided facial droop which apparently resolved by the time EMS arrived. Patient was disoriented to place time and person. No meaningful information could be obtained from her. She had CT and MRI of her brain which showed old left temporal encephalomalacia with no acute ischemia. This was discussed with the neurology who suggested an LP. She had an LP done and she was admitted. Currently I cannot obtain information from the patient. She is not making any sense. She doesn't follow commands. Her daughter was here and she couldn't tell me her daughter's name. She doesn't know why she is in the hospital. There was no history of fever or headaches. She does not follow all the commands. She is not agitated. The daughter said that she talk to her at last week and her baseline she did have some memory issues after the surgery but this is totally different than her usual self. Past Medical History Medical History: 43. Hypothyroidism. 2. Hypertension. 3. 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 Had postoperative radiation and also adjuvant Temodar in 2016. 4. History of previous DVT before right lower leg in January 2016. Was on Xarelto then. 5. Hypoxemia on oxygen supposedly 24/7. 6. 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 7. Admission to our hospital back in July 2017 for an episode of confusion diagnosed as TIA. Surgical History: 1. Status post left temporal grade 2 atypical meningioma resection in December 2015. 2. History of previous right hip replacement. 3. History of tonsillectomy Family History: Reviewed an Not Pertinent Past Social History: Does not smoke or does not drink nor drugs. Lives at an assisted living. Tobacco Use: Current Every Day Smoker In the Past 12 Months, Have Used or Abuse Any of the Following Substance: None Alcohol Use: None Medication / Allergies Home Medications: Home Medications 3 Medication Instructions Recorded Confirmed Type Oxygen (O2) 1 unit RICHAR DAILY #2 unit 08/09/15 04/22/18 History amlodipine 5 mg tablet 5 mg PO QHS #30 tab 02/13/18 04/22/18 Rx levothyroxine 25 mcg tablet 25 mcg PO QD #30 tab 02/13/18 04/22/18 Rx Allergies/Adverse Reactions: Allergies 3 Allergy/AdvReac Type Severity Reaction Status Date / Time METHIOLATE Allergy Intermediate RASH Uncoded 04/22/18 09:46 Review of Systems - Review of Systems ROS Unobtainable: Due to Mental Status Exam - Vitals Vital Signs: Vital Signs Temperature 97 F Temperature Source Temporal Artery Scan Pulse Rate [Pulse Oximeter 67 Bilateral Radial] Respiratory Rate 17 Blood Pressure [Left Arm] 191/113 Pulse Ox 97 Oxygen Delivery Method Nasal Cannula Height 5 ft 1 in Weight 129 lb 1.6 oz - General Additional General Exam Details: Patient was laying in bed does not appear in distress. She is disoriented to time place and person. - Head Head Exam: Normal Inspection - Eye Eye Exam: POSITIVE: Normal Appearance - ENT ENT Exam: POSITIVE: Normal Exam - Neck Neck Exam: Normal Inspection - Respiratory Respiratory Exam: POSITIVE: Clear to Auscultation - Bilaterally - Cardiovascular Cardiovascular Exam: POSITIVE: RRR - GI/Abdominal GI/Abdominal Exam: POSITIVE: Normal Bowel Sounds, Non Tender, Non Distended, Soft, No Organomegaly - Rectal Rectal Exam: POSITIVE: Deferred - External Exam: POSITIVE: Deferred - Extremities Extremities Exam: POSITIVE: Normal Inspection - Back Back Exam: POSITIVE: Normal Inspection - Neurological Additional Neurological Exam Details: She is awake however she does not follow commands. She seems also to be hard of hearing. She is moving her extremities there is maybe some weakness on the handgrip on the right but are not sure whether she is understanding what I'm asking her or not. Reflexes are depressed. Babinski is absent. Difficult to do sensation testing. - Psychiatric Psychiatric Exam: POSITIVE: Flat Affect - Integumentary Integumentary Exam: POSITIVE: Normal Color Results - Labs CBC and BMP: 04/22/18 10:08 04/22/18 10:08 - EKG Data -: EKG Interpreted by Me (EKG showed sinus rhythm with right bundle branch block ) Rate: Normal EKG Shows Normal: Sinus Rhythm - Imaging Status: Report Reviewed by Me (CT head Diffuse age-related volume loss and postsurgical changes within the left temporal fossa unchanged from the prior exam. 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 Scattered areas of FLAIR and T2 signal as well, unchanged from the prior exam. No acute ischemia. Chest X ray Elevation of right hemidiaphragm. Mild cardiomegaly.) Assessment and Plan - Patient Problems (1) Altered mental status Current Visit: Yes Status: Acute Comment: There is no evidence of for ischemia on the MRI. She is encephalopathic The suspicion is either this is encephalitis versus postictal state. The CSF analysis is borderline. I did speak with the Dr. Rodriguez the neurologist in [place] who suggested to give her both Keppra and start her on acyclovir also. He suggested to continue the acyclover until we have the PCR results. Code(s): R41.82 - Altered mental status, unspecified (2) Hypothyroidism Current Visit: No Status: Chronic Comment: We'll put her on her usual medications Code(s): E03.9 - Hypothyroidism, unspecified Qualifiers: Hypothyroidism type: acquired Qualified Code(s): E03.9 - Hypothyroidism, unspecified (3) Benign essential hypertension Current Visit: No Status: None Comment: Continue Norvasc. Will watch her blood pressure.
[2018-04-22] MEDS ORDERED: Lactated Ringers 1,000 ML PRIMARY IV SCH (19:30)
[2018-04-22] MEDS: AmLODIPine Tab 5 MG TABLET PO SCH (20:49)
[2018-04-23] MEDS: LEVOTHYROXINE 25 MCG TABLET PO SCH (04:36)
--- NOTE | 2018-04-23 08:35 | PDOC(PROG) ---
Date and Time of Service: 04/23/2018 8:35 AM Interval History: Subjective She is more alert today making more sentences and following clearly commands. Still have some memory issues not sure whether this is her baseline or not. But definitely there is improvement compared to last night when I first saw her. She is able to tell me her first name she cannot remember her last name. She couldn't tell me her date of still. She still denying symptoms Objective : Data - Labs CBC and BMP: 04/22/18 10:08 04/22/18 10:08 Objective : Exam - General General Appearance: No Acute Distress, Cooperative - Head Head Exam: Normal Inspection - Eye Eye Exam: Normal Appearance - ENT ENT Exam: Normal Exam - Neck Neck Exam: Normal Inspection - Respiratory Respiratory Exam: Clear to Auscultation - Bilaterally - Cardiovascular Cardiovascular Exam: RRR - GI/Abdominal GI/Abdominal Exam: Normal Bowel Sounds, Non Tender, Non Distended, Soft, No Organomegaly - Rectal Rectal Exam: Deferred - External Exam: Deferred Exam: Deferred - Extremities Additional Extremities Exam Details: Some swelling in the right leg compared to the left. - Back Back Exam: Normal Inspection - Neurological Neurological Exam: Alert, CN II-XII Intact, No Facial Droop, Speech Intact / Clear, Moves All Extremities Equally - Psychiatric Psychiatric Exam: Normal Affect Assessment and Plan - Patient Problems (1) Altered mental status Current Visit: Yes Status: Acute Comment: Her confusion seemed to be less today compared to last night. However she still have some memory issues. She is cooperative and understanding commands. As I said this is either postictal or encephalitis. We started him both on as actually and [place] will continue. Code(s): R41.82 - Altered mental status, unspecified (2) Hypothyroidism Current Visit: No Status: Chronic Comment: Continue same medications Code(s): E03.9 - Hypothyroidism, unspecified Qualifiers: Hypothyroidism type: acquired Qualified Code(s): E03.9 - Hypothyroidism, unspecified (3) Benign essential hypertension Current Visit: No Status: None Comment: Same medications (4) Seizure Current Visit: No Status: Acute Comment: Patient had a history of seizures and that was when she was first diagnosed with a meningioma. At that time it was complex partial seizure that affected her language function. Her presentation yesterday may be a reflection of her having had a seizure and we started her on Keppra per my discussion with the neurologist will continue with it. Continue IV today and maybe switch her to by mouth tomorrow. Code(s): R56.9 - Unspecified convulsions (5) Encephalitis Current Visit: Yes Status: Acute Comment: The other on the differential diagnosis is encephalitis. The finding on the CSF were borderline. she had like 6 white RBC and per my discussion with the neurologist his recommendation is to start her on acyclovir and continue with it until we have the PCR result. Code(s): G04.90 - Encephalitis and encephalomyelitis, unspecified
[2018-04-23] MEDS ORDERED: levETIRAcetam Inj 500 MG/5 ML VIAL IV ONE (09:33)
--- NOTE | 2018-04-23 09:43 | DI ---
US Up/Low Ext Veins U/L or Ltd,04/23/2018 9:00 AM: Clinical History: Right lower extremity swelling. Previous Exam: None at this facility. Findings: Multiple grayscale and color Doppler sonographic images are obtained through the deep veins of the located within [facility] lower extremity, and demonstrate complete coaptation upon graded compression throughout. There is no echogenic thrombus. There is normal respiratory variation and augmentation. Impression: No evidence of deep venous thrombosis.
--- NOTE | 2018-04-23 14:50 | PTI REPORT ---
Thank you for the referral of Su Law. She was seen on 04/23/18 for an inpatient evaluation secondary to generalized weakness. SUBJECTIVE: The patient is an 87-year-old female who was brought to the hospital on after she demonstrated confusion and difficulty with speech. The patient reports she does not remember coming to the hospital or why she came in. The patient reports she lived in an apartment, but could not recall the name. She stated that her daughter comes to check on her when she needs help, but could not recall where her daughter lived or worked. The patient states she used a front wheeled walker to walk to cafeteria to eat at the assisted living facility. She reports she was independent with ADLs but states she does not remember exactly how she used to do activities. The patient reports no pain or change in sensation. PAST MEDICAL HISTORY: Past medical history can be found in the patient's medical record. OBJECTIVE FINDINGS: General observations: The patient is alert. She understands she is in the hospital and can recall her first and last name; however, she is not fully oriented. The patient has a Ordoñez, O2, and an IV. Strength: Hip flexion strength was 2/5 on the left and 3+/5 on the right, knee extension was 3+/5 on the left and 4/5 on the right, abduction/adduction was 3/ 5 bilaterally, and plantarflexion and dorsiflexion were within normal limits. Bed mobility/Transfers: The patient transferred from supine to seated edge of bed to standing with stand by assist x1 and minimal verbal cueing. Ambulation: The patient ambulated with standard walker and stand by assist x1 to the bathroom. The patient ambulated back to chair with stand by assist x1 and standard walker. ASSESSMENT: The patient has difficulty walking and transferring due to generalized weakness. Physical Therapy Goals: To be met by discharge from inpatient: Patient will demonstrate independent and safe ambulation and transfers to participate in activities of daily living. TREATMENT PLAN: Patient will be seen B.I.D during the week and one time per day over the weekend as an inpatient for strengthening and functional activity to increase independence with ADLs. INITIAL TREATMENT: Treatment today consisted of the initial evaluation followed by transfers for toileting and transfer into chair. The patient was left in chair with call light and chair alarm on. Dictated by: SONIDO Fuchs Supervised by: FIDELINA Johnston
--- NOTE | 2018-04-23 14:58 | PT.PROG ---
Progress Note Progress Note: S: pt states that she is doing ok and agreed to therapy. O: Pt was wheeled down by OT to therapy. Pt was on oxygen during therapy. Tx consisted of hip flexion marches, knee extensions, seated heel raises 2 sets of 10 each. Pt ambulated from therapy back to room, about 300 ft, with FWW and CGA x1. Pt transferred into chair with CGA x1. Pt was left in chair with chair alarm and call light. A: Pt tolerated exercise very well. Pt has some difficulty understanding simple commands. She has periods of difficulty finding words and remembering names of places and people. P: Continue POC for strengthening. Oriana Mora, SPT
[2018-04-23] MEDS: AmLODIPine Tab 5 MG TABLET PO SCH (20:06)
[2018-04-24] MEDS: LEVOTHYROXINE 25 MCG TABLET PO SCH (04:30)
[2018-04-24 04:48] LABS: BASOPHILS # (AUTO) 0.02 10*3/UL; BASOPHILS % (AUTO) 0.3 % (0-1); EOSINOPHILS # (AUTO) 0.18 10*3/UL; EOSINOPHILS % (AUTO) 2.8 % (0-8); Hematocrit [HCT] 37.6 % (37.0-47.0); Hemoglobin [HGB] 12.4 g/dL (12.0-16.0); LYMPHOCYTES # (AUTO) 1.43 10*3/uL; MEAN CORPUSCULAR HEMOGLOBIN 30.5 PG (27-31); MEAN CORPUSCULAR VOLUME 92.4 FL (81-99); MEAN PLATELET VOLUME 10.4 FL (7.4-12.2); MONOCYTES # (AUTO) 0.78 10*3/UL (0.3-0.8); MONOCYTES % (AUTO) 12.3 % (5-15); NEUTROPHILS # (AUTO) 3.91 10*3/UL; NEUTROPHILS % (AUTO) 61.8 % (50-80); RED BLOOD COUNT 4.07 10^6/uL (4.20-5.40)
[2018-04-24 05:01] LABS: PLATELET MORPHOLOGY COMMENT NORMAL MORPHOLOGY (NORM); RBC MORPHOLOGY COMMENT NORMAL MORPHOLOGY (NORM); WBC MORPHOLOGY COMMENT NORMAL MORPHOLOGY (NORM)
[2018-04-24 05:02] LABS: BLOOD UREA NITROGEN 26 mg/dL (7-22)
--- NOTE | 2018-04-24 08:00 | PDOC(PROG) ---
Date and Time of Service: 04/24/2018 7:59 AM Interval History: Subjective Patient is awake, alert. She is more with it today. She is able to tell me her name, date of where she lives which she couldn't do when she first came in. Yesterday she was able to tell me only her first name. She said the medics brought her to the hospital but doesn't remember much after that. She is denying symptoms today. Objective : Data - Labs CBC and BMP: 04/24/18 04:28 04/24/18 04:28 Objective : Exam - General General Appearance: No Acute Distress, Cooperative - Head Head Exam: Normal Inspection - Eye Eye Exam: Normal Appearance - ENT ENT Exam: Normal Exam - Neck Neck Exam: Normal Inspection - Respiratory Respiratory Exam: Clear to Auscultation - Bilaterally - Cardiovascular Cardiovascular Exam: RRR - GI/Abdominal GI/Abdominal Exam: Normal Bowel Sounds, Non Tender, Non Distended, Soft, No Organomegaly - Rectal Rectal Exam: Deferred - External Exam: Deferred - Extremities Extremities Exam: Normal Inspection - Back Back Exam: Normal Inspection - Neurological Neurological Exam: Alert, Oriented x 3, CN II-XII Intact, Speech Intact / Clear , Moves All Extremities Equally Additional Neurological Exam Details: She did not know the day but she knows the month and the year. She now where she lives. She Date of . She now on full name she couldn't tell me when she first came in. - Psychiatric Psychiatric Exam: Normal Affect - Integumentary Integumentary Exam: Normal Color Assessment and Plan - Patient Problems (1) Altered mental status Current Visit: Yes Status: Acute Comment: Seems to be resolving. Not sure whether she is clearly back to her baseline or not will see what the daughter thinks. Her presentation was either secondary to a seizure being likely complex partial seizure or secondary to infection which I think seems less likely. Code(s): R41.82 - Altered mental status, unspecified (2) Hypothyroidism Current Visit: No Status: Chronic Comment: Same medications Code(s): E03.9 - Hypothyroidism, unspecified Qualifiers: Hypothyroidism type: acquired Qualified Code(s): E03.9 - Hypothyroidism, unspecified (3) Benign essential hypertension Current Visit: No Status: None Comment: Same med (4) Seizure Current Visit: No Status: Acute Comment: We'll switch the Keppra IV to by mouth Code(s): R56.9 - Unspecified convulsions (5) Encephalitis Current Visit: Yes Status: Acute Comment: The CSF was borderline abnoraml will continue with Keppra until we have the PCR for herpes back. I think it seems to be less likely though than a seizure causing her encephalopathy. Code(s): G04.90 - Encephalitis and encephalomyelitis, unspecified
[2018-04-24] MEDS: LevETIRAcetam Tab 500 MG TABLET PO SCH ×2 (09:02→20:07)
[2018-04-24] MEDS: Potassium Chloride Tab 10 MEQ TAB PO SCH (09:02)
--- NOTE | 2018-04-24 11:25 | PT.PROG ---
Progress Note Progress Note: S. Patient agreed to do therapy in her room this morning. O. Patient performed seated long arc quads, marches, heel toe raises, pillow squeezes, glute squeezes all x 15 bilaterally. Patient was left in chair with alarm and call light. A. Patient tolerated exercise well, she continues to have weakness and fatigues easily. She would continue to benefit from skilled therapy to increase strength and endurance at this time. P.Continue POC.
--- NOTE | 2018-04-24 12:01 | OTI REPORT ---
Thank you for the referral of Su Law. She was seen on 04/23/18 for an occupational therapy inpatient evaluation secondary to weakness. SUBJECTIVE: The patient is an 87-year-old female who was brought into the hospital with a lot of confusion noted by her daughter. The patient's daughter reports that her mother does have memory issues at times, but nothing like she is demonstrating now. According to the reports, the patient did not have an acute ischemia attack but did have a brain tumor removed a couple of years ago. The patient reports that she does live at [facility] and that she completed all ADLs and iADLs independently before admission. 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 The patient has a total of 5 children, but one ; the patient could not remember to tell the therapist this. She was able to verbalize where her children live. PAST MEDICAL HISTORY: Past medical history can be found in the patient's medical record. OBJECTIVE FINDINGS: General observations: The patient was in bed upon the therapist's arrival. She was willing to complete therapy. Bed mobility: The patient transferred from supine to sitting edge of bed with stand by assistance. Activities of daily living: The patient was asked to doff and don her socks. During this process the patient did seem to have some processing issues. She was able to get one sock off with her toe, but then verbalized that she wasn't sure how to get the other sock off. The therapist gave the patient a few options, but the patient did not seem to understand what the therapist was saying. She did complete lower extremity and upper extremity dressing with shorts and a t-shirt and the patient was able to do this independently. Transfers: The patient transferred from the bed to the wheelchair with contact guard assist only. Aphasia: The patient also completed some aphasia assessment worksheets. The patient was approximately 75% accurate on filling in missing words correctly. AT times she was able to read the sentence very well and add in the word that was correct. Other times when she would read the sentence, her expressive aphasia kicked in and the words she was saying were not what was on the paper. Often she got confused when this would happen and acted like the sentence just didn't make sense. The patient also completed sentence at the end with the end word; this was also very confusing to her and she was only able to complete 2/ 20 accurately. The patient was asked to write her name which she completed with good accuracy. She was asked to write numbers 1-10 which she did with good accuracy. We also tried some sequencing requests verbally. She was asked to draw a square, which she was able to complete. She was asked to draw a triangle with a little river, but she failed this task, drawing a triangle and a square. She was asked to draw a square with the number 4, but this was very confusing for the patient and needed to be explained in detail. After learning what she was supposed to do, she was able to complete a little river with a 6. The patient was asked to name as many words as she could with the letter B. Within two minutes, she was only able to come up with the word "balls". 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 She may have some receptive aphasia going on, but it is hard to tell the difference between true receptive aphasia and possible memory/processing difficulties. The patient would benefit from occupational therapy to increase completion of all ADLs with good safety. Occupational Therapy Goals: To be met by discharge from inpatient: Patient will be able to complete all activities of daily living with good safety. Patient will complete aphasia activities to increase correct verbiage 80% of the time. TREATMENT PLAN: Patient will be seen B.I.D during the week and one time per day over the weekend as an inpatient to address the above goals and objectives. INITIAL TREATMENT: Treatment today consisted of the initial evaluation activities only. DARIO
--- NOTE | 2018-04-24 14:52 | OT.PROG ---
Progress Note Progress Note: S: Pt stated she was tired and hadn't had any rest all morning. O: Pt participated in OT-session to address cognition. Pt completed [place] Cognitive Assessment (MOCA) w/ 4/5 for visuospatial, 2/3 for naming, 1/6 for attention, 0/3 for language, 1/2 for abstraction, 0/5 for delayed recall, and 3/ 6 for orientation for a total of 10/10 signifying moderate cognitive impairment. A: Pt is able to converse and problem solve but still scored poorly on the MOCA and had difficulty following directions w/o even attempting for delayed recall and language. P: Cont. with skilled OT to address ADL skills, standing balance, activity tolerance, and energy conservation. Potentially complete more thorough cognitive evaluation. Osbaldo OBRIEN.
--- NOTE | 2018-04-24 15:02 | OT.PROG ---
Progress Note Progress Note: S: Pt stated that she guessed she was ready for PT but didn't want to groom, only get dressed. O: Pt participated in OT-session to address toilet hygiene, dressing, dynamic standing balance, B UE strengthening, and dynamic reaching. Pt successfully transferred sit to stand from toilet and completed toilet hygiene w/ mod I. Pt amb w/ CGA from bathroom to hospital room recliner. Pt completed UE dressing I. Pt required CGA for standing while donning and doffing shorts and briefs. Pt required mod A for donning non-slip socks due to inability to reach while seated. Pt completed 10ft of amb /w CGA to w/c for transport to PT gym. Pt completed UE cane exercises w/ shoulder flexion and abduction w/ biceps curls. Pt completed dynamic reaching exercises w/ ball for 2min before requiring break. A: Pt is progressing well in ADL areas and in balance remediation. Pt could benefit from AE for dressing. P: Cont. skilled OT for ADL's and standing balance w/ dynamic reaching. Recommend educating pt on using long-handled psychodramatist and sock aid for dressing LE. Osbaldo HASTINGS
--- NOTE | 2018-04-24 15:22 | PT.PROG ---
Progress Note Progress Note: S. Patient stated that she is feeling good this afternoon. O. Patient was wheeled to the therapy gym where she performed seated exercises in the form of; long arc quads, marches, heel toe raises, ball squeezes, glute squeezes, resisted knee flexion, and sit to stands all x 15 bilaterally with 2# and red theraband. Patient then ambulated 175 feet back to her room where she was left in her chair with alarm and call light. A. Patient tolerated therapy well, she continues to have some weakness and fatigues easily. Patient would continue to benefit from skilled therapy to increase strength and endurance. P. Continue POC.
[2018-04-24] MEDS: AmLODIPine Tab 5 MG TABLET PO SCH (20:07)
[2018-04-25] MEDS: LEVOTHYROXINE 25 MCG TABLET PO SCH (04:32)
[2018-04-25 07:40] VITALS: RESP 18
[2018-04-25] MEDS: LevETIRAcetam Tab 500 MG TABLET PO SCH (07:59)
[2018-04-25] MEDS: Potassium Chloride Tab 10 MEQ TAB PO SCH (08:00)
[2018-04-25 12:02] VITALS: BP 153/74; TEMP 97.4; O2SAT 99
--- NOTE | 2018-04-25 12:37 | DCSUMMARY ---
Hospitalization Summary Admit Date: 04/22/2018 Discharge Date: 04/25/18 Primary Diagnosis:: seizure disorder Hospital Course: This is a very pleasant 87-year-old female who was admitted in the setting of confusion disorientation. A lumbar puncture was done and it was suggestive of possible viral meningitis. The patient had encephalomalacia noted on MRI scan of the brain but no evidence of encephalitis. After Keppra and antivirals were started, the patient got better. She is alert, oriented, to person, place, time , and situation. She feels that she is back to her baseline. Viral PCR studies were negative for herpes 1 or herpes 2. It was suggested to continue antiviral therapy until we saw that the PCR studies were negative. I tried to call the patient's daughter at her home and at her place of employment, and I could not reach her to discuss the discharge plan with her. I discussed with her primary provider. They will see her next week. I believe most of her confusion and disorientation could be explained by seizure and postictal state. Today, no completes of chest pain, shortness breath, nausea or vomiting. Appetite is good. The patient feels like she is at her functional baseline and she is not interested in doing therapy outside the hospital. Assessment and Plan: 1. As per discharge assessments noted 2. Disposition: Patient is discharged home. 3. Condition on discharge, stable and improved. 4. Diet: regular diet 5. Activities: resume normal activities 6. Follow-Up: 1. See Rama Latham next week 2. 7. Medications at the Time of Discharge: Home Medications 3 Medication Instructions Recorded Confirmed Type Oxygen (O2) 1 unit RICHAR DAILY #2 unit 08/09/15 04/22/18 History amlodipine 5 mg tablet 5 mg PO QHS #30 tab 02/13/18 04/22/18 Rx levothyroxine 25 mcg tablet 25 mcg PO QD #30 tab 02/13/18 04/22/18 Rx levETIRAcetam Tab [Keppra Tab] 750 mg PO BID #90 tab 04/25/18 Rx 8. Time, care, counseling and coordination of care for this discharge is less than 30 minutes. Exam - Vitals Vital Signs: Vital Signs Temperature 97.4 F Temperature Source Temporal Artery Scan Pulse Rate [Pulse Oximeter] 68 Pulse Rate [Pulse Oximeter 67 Bilateral Radial] Respiratory Rate 18 Blood Pressure [Right Arm] 153/74 Blood Pressure [Left Arm] 134/70 Pulse Ox 99 Oxygen Flow Rate 2 Oxygen Delivery Method Nasal Cannula Height 5 ft 1 in Weight 131 lb - General General Appearance: No Acute Distress, Cooperative - Eye Eye Exam: POSITIVE: No Scleral Icterus - ENT ENT Exam: POSITIVE: Mucous Membranes Moist - Respiratory Respiratory Exam: POSITIVE: Clear to Auscultation - Bilaterally, Breathing Non Labored - Cardiovascular Cardiovascular Exam: POSITIVE: RRR, No Murmur, No Clicks, No Gallops, No Rubs, No JVD - GI/Abdominal GI/Abdominal Exam: POSITIVE: Normal Bowel Sounds, Non Tender, Non Distended, Soft - Extremities Extremities Exam: POSITIVE: No Clubbing Present, No Edema Present, No Cyanosis Present - Neurological Neurological Exam: POSITIVE: Alert, Oriented x 3, No Facial Droop, Speech Intact / Clear, Moves All Extremities Equally Data Peritnent Studies: 04/22/18 04/22/18 04/22/18 10:00 10:00 10:08 WBC Hgb Hct Plt Count Sodium Potassium Chloride Carbon Dioxide Anion Gap BUN Creatinine BUN/Creatinine Ratio Glucose Calculated Osmolality Lactic Acid Calcium 9.8 Magnesium 1.8 Total Bilirubin 0.7 AST 20 ALT 28 Alkaline Phosphatase 105 CK-MB (CK-2) Troponin I Handheld 0.010 NT-Pro-B Natriuret Pep 221 Total Protein 7.7 Albumin 4.4 Globulin 3.3 Albumin/Globulin Ratio 1.30 TSH Free T4 Ur Culture Indicated? Culture not set CSF Volume CSF Appearance CSF Color CSF WBC CSF RBC CSF Glucose CSF Total Protein CSF Herpes I DNA (PCR) CSF Herpes II DNA (PCR) CSF Strep pneumoniae Ag 04/22/18 04/22/18 04/22/18 10:08 10:18 15:00 WBC Hgb Hct Plt Count Sodium Potassium Chloride Carbon Dioxide Anion Gap BUN Creatinine BUN/Creatinine Ratio Glucose Calculated Osmolality Lactic Acid 1.4 Calcium Magnesium Total Bilirubin AST ALT Alkaline Phosphatase CK-MB (CK-2) 2.48 Troponin I Handheld NT-Pro-B Natriuret Pep Total Protein Albumin Globulin Albumin/Globulin Ratio TSH 2.58 Free T4 1.14 Ur Culture Indicated? CSF Volume CSF Appearance CSF Color CSF WBC CSF RBC CSF Glucose CSF Total Protein CSF Herpes I DNA (PCR) Negative CSF Herpes II DNA (PCR) Negative CSF Strep pneumoniae Ag 04/22/18 04/22/18 04/24/18 17:00 17:00 04:28 WBC 6.33 Hgb 12.4 Hct 37.6 Plt Count 196 Sodium Potassium Chloride Carbon Dioxide Anion Gap BUN Creatinine BUN/Creatinine Ratio Glucose Calculated Osmolality Lactic Acid Calcium Magnesium Total Bilirubin AST ALT Alkaline Phosphatase CK-MB (CK-2) Troponin I Handheld NT-Pro-B Natriuret Pep Total Protein Albumin Globulin Albumin/Globulin Ratio TSH Free T4 Ur Culture Indicated? CSF Volume Approx. 5 CSF Appearance Clear CSF Color Colorless CSF WBC 0.006 CSF RBC 0.002 CSF Glucose 53 CSF Total Protein 67 H CSF Herpes I DNA (PCR) CSF Herpes II DNA (PCR) CSF Strep pneumoniae Ag Negative 04/24/18 04:28 WBC Hgb Hct Plt Count Sodium 141 Potassium 3.5 L Chloride 108 Carbon Dioxide 28 Anion Gap 5 BUN 26 H Creatinine 0.8 BUN/Creatinine Ratio 32.50 H Glucose 90 Calculated Osmolality 296.0 H Lactic Acid Calcium 9.0 Magnesium Total Bilirubin AST ALT Alkaline Phosphatase CK-MB (CK-2) Troponin I Handheld NT-Pro-B Natriuret Pep Total Protein Albumin Globulin Albumin/Globulin Ratio TSH Free T4 Ur Culture Indicated? CSF Volume CSF Appearance CSF Color CSF WBC CSF RBC CSF Glucose CSF Total Protein CSF Herpes I DNA (PCR) CSF Herpes II DNA (PCR) CSF Strep pneumoniae Ag Strep pneumoniae antigen, herpes 1 and herpes 2 DNA were all negative Patient Problems - Patient Problem List (1) Seizure Current Visit: Yes Status: Acute Code(s): R56.9 - Unspecified convulsions Category: Medical (2) Altered mental status Current Visit: Yes Status: Resolved Code(s): R41.82 - Altered mental status , unspecified Qualifiers: Altered mental status type: disorientation Qualified Code(s): R41.0 - Disorientation, unspecified Category: Medical (3) Benign essential hypertension Current Visit: Yes Status: Chronic Onset Date: 10/07/12 Code(s): I10 - Essential (primary) hypertension Category: Medical (4) Hypothyroidism Current Visit: Yes Status: Chronic Code(s): E03.9 - Hypothyroidism, unspecified Qualifiers: Hypothyroidism type: acquired Qualified Code(s): E03.9 - Hypothyroidism, unspecified Category: Medical
--- NOTE | 2018-04-25 14:12 | PT.PROG ---
Progress Note Progress Note: S: Pt states she is doing well and agreed to therapy. O: Pt was alert and oriented. Pt dressed independently while seated in chair. Pt transferred from sit to stand with CGA x1. Pt was wheeled down to therapy. Tx consisted of 300 ft of ambulation, hip flexion, knee extension, and plantar flexion strengthening 2 sets of 10 each and 10 STS. Pt continued therapy with OT. A: Pt tolerated exercise well without fatigue. P: Pt will be d/c this afternoon and continue therapy at assisted living. Oriana Mora, SPT
--- NOTE | 2018-04-28 11:07 | OT AM DAY ---
Diagnosis : Weakness AM - Occupational Therapy S: The patient was in good spirits. She did not report any additional pain or issues at this time. She did state she was hoping to go home soon. O: The patient was seen in therapy after being transferred down via wheelchair by PT. The patient completed dynamic standing balance activity including tapping balloon back and forth while maintaining contact guard assist for safety. She also performed therapeutic exercises with red theraband in all planes x15 with bilateral upper extremities to increase her strength to assist with postural transitions such as sit to stands and bed mobility. The patient was transferred upstairs to finish her therapy due to being low on oxygen; therapy was out of any full tanks. Upstairs, the patient completed power web, putty, and digi-flex bilaterally x20 to assist with fine motor strength. A: The patient participated well. She did not display any lack of balance during dynamic balance activities today. P: Continue seeing patient BID during the week and one time per day over the weekend until discharge. DARIO
== END 2018-04-25 14:25 | disposition home or self-care (01) | DRG 100 ==
LOC: ER 09:28 → MED/SURG 09:28
PROVIDERS: ADMIT Internal Medicine; ATTEND Internal Medicine

== ENCOUNTER 2019-05-31 09:25 | Inpatient (IN) ==
[2019-05-31] MEDS ORDERED: Sodium Chloride 0.9% 1,000 ML PRIMARY IV ONE (10:00)
--- NOTE | 2019-05-31 10:21 | EKG ---
[address] [address] Measurements Intervals [place] Rate: 86 P: 97 MI: 151 QRS: -39 QRSD: 144 T: -3 QT: 398 QTc: 441 Interpretive Statements SINUS RHYTHM INDETERMINATE AXIS RIGHT BUNDLE BRANCH BLOCK [120+ ms QRS DURATION, UPRIGHT V1, 40+ ms S IN I/aVL/V4/V5/V6] Compared to ECG 05/13/2019 11:02:57 minimal change Electronically Signed On 05-31-19 14:56:22 MDT by Samuel Gilmore MD [email or web address]
[2019-05-31 10:38] LABS: Hematocrit [HCT] 37.1 % (37.0-47.0); Hemoglobin [HGB] 12.2 g/dL (12.0-16.0); MEAN CORPUSCULAR HGB CONC 32.9 g/dL (33-37); MEAN CORPUSCULAR VOLUME 91.6 FL (81-99); MEAN PLATELET VOLUME 9.5 FL (7.4-12.2); RED BLOOD COUNT 4.05 10^6/uL (4.20-5.40)
[2019-05-31 10:46] LABS: BLOOD UREA NITROGEN 22 mg/dL (7-22); BUN/CREATININE RATIO 31.42 (6-20); SERUM ALBUMIN 3.5 g/dL (3.5-4.8)
[2019-05-31 10:51] LABS: VENOUS PH 7.42 (7.32-7.42)
[2019-05-31 11:00] LABS: BAND NEUTROPHILS % 2 % (0-10); BASOPHILS % (MANUAL) 2 % (0-1); EOSINOPHILS % (MANUAL) 2 % (0-8); METAMYELOCYTES % 0 %; MONOCYTES % (MANUAL) 6 % (0-12); MYELOCYTES % 0 %; NEUTROPHILS % (MANUAL) 73 % (50-80); PLATELET MORPHOLOGY COMMENT NORMAL MORPHOLOGY (NORM); PROMYELOCYTES % 0 %; RBC MORPHOLOGY COMMENT SEE COMMENTS (NORM); WBC MORPHOLOGY COMMENT NORMAL MORPHOLOGY (NORM)
--- NOTE | 2019-05-31 11:32 | DI ---
AP /LATERAL CHEST, 05/31/2019 10:00 AM : Clinical History: Dyspnea. Previous Exam: None at this facility. Soft Tissues: No acute soft tissue abnormality. Bones: Normal. Heart: Heart Size: Cardiomegaly. Vascular Pedicle Width: Normal. Azygous Vein: Normal size. Vascular Flow Pattern:Reversal of flow to upper lobes indicating chronic elevated left atrial pressure. Pulmonary Arteries: Normal. Lungs: No infiltrates. Effusion(s): None. Mediastinum: Normal. Nodules: No pulmonary nodules. Readin. No acute infiltrate or effusion. 2. Cardiomegaly. Chronic left heart failure. No evidence of acute left heart failure or right heart failure.
--- NOTE | 2019-05-31 11:35 | DI ---
LEFT TIBIA AND FIBULA EXAM, 05/31/2019 10:06 AM: Clinical History: Pain and swelling of the left lower leg. Comparison Study: None at this facility. Views: AP and lateral. Soft Tissues: There is edema from above the knee joint to the lower leg. The patient apparently wears a compression stocking and minimize the swelling just above the ankle. Effusion: No joint effusion present. Joints: Arthritic changes are present in the medial and lateral compartments of the knee and in the t ibiotalar joint. Bones: No fracture or dislocation. Osteoporosis. Readin. No fracture or dislocation. Osteoporosis. Arthritic changes of the medial and lateral compartment s of the knee and the tibiotalar joint. 2. Extensive edema as visualized above the knee joint extending to the lower leg. There is minimal e estelita around the ankle because of the compression stocking.
[2019-05-31 13:06] LABS: BILIRUBIN,URINE SMALL (NEG); CLARITY,URINE CLEAR (CLEAR); COLOR,URINE YELLOW (Y); GLUCOSE, URINE (UA) NEGATIVE (NEG); OCCULT BLOOD,URINE NEGATIVE (NEG); PH,URINE 5.5 (5.0-8.5); PROTEIN,URINE 30 mg/dl (NEG); UROBILINOGEN,URINE 0.2 EU/dL (0.2)
[2019-05-31 13:11] LABS: BACTERIA,URINE RARE; RBC,URINE 0-1 /hpf; SQUAMOUS EPITHELIAL CELL,UR FEW; URINE SAMPLE TYPE CATH SPECIMEN
[2019-05-31] MEDS ORDERED: ENOXAPARIN SODIUM 60 MG/0.6 ML SYRINGE SUBCUT ONE (13:41)
--- NOTE | 2019-05-31 13:56 | DI ---
VENOUS DOPPLER ULTRASOUND OF BOTH LOWER EXTREMITIES, 05/31/2019 10:04 AM: Clinical History: Bilateral leg pain and swelling. Previous Exam: Right venous Doppler ultrasound of the lower extremity, 01/01/2019. Technique: 2D real-time imaging and color Doppler ultrasound with compression and augmentation maneuv ers. Deep Venous System: In the right leg, there is thrombus present in the common, superficial and deep f emoral veins. The superficial femoral vein is occluded to Dain's canal. In the left leg, clot is pr esent in the common, superficial, and deep femoral vein. The superficial femoral vein is occluded to approximately Dani's canal. Superficial Venous System: Clot is present in the proximal thigh in the left greater saphenous vein n ear the junction with the common femoral vein. The right greater saphenous vein is intact. Edema: There is edema of both lower legs. Readin. Clot are present in both legs from the common femoral veins and extending to the superficial vein s at the level of Dain's canal. The left popliteal vein is not visualized. Clot is also present in both deep femoral veins. 2. Clot is present in the greater saphenous vein in the proximal left thigh up to the common femoral vein. The right greater saphenous vein is patent.
--- NOTE | 2019-05-31 14:43 | PDOC ---
HPI - History of Present Illness Date of Service: 05/31/19 Time of Service: 15:15 Chief Complaint: Bilateral leg swelling, redness in the left leg History of Present Illness: This is an 88 years old female with medical history significant for history of meningioma with previous resection before including radiation and chemo treatment, had recurrence in March 2019 and had radiation treatment again for it, history of previous DVT was on Xarelto at one point in time, history of hypertension who was brought to the hospital by the daughters because of swelling in both legs and some increased redness in the left leg above the ankle. Evaluation in the ER revealed bilateral DVT, there was a question also of cellulitis. she was given Lovenox and was admitted. CT of the chest was negative for PE. The patient herself is denying complaint. History is mainly obtained from the daughters. The daughters did notice a decline in her cognitive function since the recurrence of the tumor. There is a plan for her to go to the longterm on Saturday. She lives by herself, she uses a walker. She gets meals from the [facility]. Past Medical History Medical History: 1. Hypothyroidism. 2. Hypertension. 3. 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 Had postoperative radiation and also adjuvant Temodar in 2015. Recurrence of the tumor in March 2019 had radiation treatment for it. 4. History of previous DVT before right lower leg in January 2016. Was on Xarelto then. 5. Hypoxemia on oxygen supposedly 24/7. 6. 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 She had a recurrence of the seizure and she was put on antiepileptic again. 7. Admission to our hospital back in July 2017 for an episode of confusion diagnosed as TIA. Surgical History: 1. Status post left temporal grade 2 atypical meningioma resection in December 2015. 2. History of previous right hip replacement. 3. History of tonsillectomy Family History: Reviewed an Not Pertinent Past Social History: Does not smoke or does not drink nor drugs. Lives at an assisted living. Tobacco Use: Never Smoker In the Past 12 Months, Have Used or Abuse Any of the Following Substance: None Medication / Allergies Home Medications: Home Medications Medication Instructions Recorded Confirmed Oxygen (O2) 1 unit RICHAR DAILY #2 unit 08/09/15 05/31/19 levetiracetam 500 mg tablet 500 mg PO QAM #30 tab 03/25/19 05/31/19 amlodipine 10 mg tablet 10 mg PO QHS #30 tab 04/23/19 05/31/19 levothyroxine 25 mcg tablet 25 mcg PO QD #30 tab 04/23/19 05/31/19 Allergies/Adverse Reactions: Allergies Allergy/AdvReac Type Severity Reaction Status Date / Time benzalkonium chloride Allergy unknown Verified 05/31/19 09:27 [From Merthiolate (benzalkonium)] Review of Systems - Review of Systems All Systems: Reviewed & No Additional Complaints Except as Stated Exam - Vitals Vital Signs: Vital Signs Temperature 97.0 F Temperature Source Temporal Artery Scan Pulse Rate [Pulse Oximeter 97 Right] Respiratory Rate 21 Blood Pressure [Left Arm] 126/74 Pulse Ox 93 Oxygen Flow Rate 3 Oxygen Delivery Method Nasal Cannula Height 4 ft 9 in Weight 138 lb - General General Appearance: No Acute Distress, Cooperative, Obese - Head Head Exam: Normal Inspection - Eye Eye Exam: POSITIVE: Normal Appearance - ENT ENT Exam: POSITIVE: Normal Exam - Neck Neck Exam: Normal Inspection - Respiratory Respiratory Exam: POSITIVE: Clear to Auscultation - Bilaterally - Cardiovascular Cardiovascular Exam: POSITIVE: RRR - GI/Abdominal GI/Abdominal Exam: POSITIVE: Normal Bowel Sounds, Non Tender, Non Distended, Soft, No Organomegaly - Rectal Rectal Exam: POSITIVE: Deferred - External Exam: POSITIVE: Deferred - Extremities Additional Extremities Exam Details: Bilateral leg edema noted and swelling. There is also redness in the area above the ankle somewhat tender. The daughter said that was read before but it's more red compared to what it was. - Neurological Neurological Exam: POSITIVE: Alert, CN II-XII Intact, No Facial Droop, Speech Intact / Clear, Moves All Extremities Equally - Psychiatric Psychiatric Exam: POSITIVE: Flat Affect Results - Labs CBC and BMP: 05/31/19 10:00 05/31/19 10:00 - EKG Data -: EKG Interpreted by Me Rate: Normal EKG Shows Normal: Sinus Rhythm - EKG Data EKG Interpretation: Other (EKG showed RBBB) - Imaging Status: Report Reviewed by Me (US 1. Clot are present in both legs from the common femoral veins and extending to the superficial veins at the level of Dain's canal. The left popliteal vein is not visualized. Clot is also present in both deep femoral veins. 2. Clot is present in the greater saphenous vein in the proximal left thigh up to the common femoral vein. The right greater saphenous vein is patent. CT chest 1. Negative CTA of the chest. There are no pulmonary emboli or pulmonary infarcts. There is marked pulmonary arterial hypertension. 2. Hepatomegaly. Probable fatty infiltration of the liver. 3 x 4 x 5 cm irregularly shaped low-density lesion in the posterior aspect of the right lobe of the liver, probably representing a cyst. It is slightly higher than fluid density. Liver ultrasound can be performed to confirm that this is a cyst.) Assessment and Plan - Patient Problems (1) DVT, bilateral lower limbs Current Visit: Yes Status: Acute Comment: I think will put her on Lovenox. I did check on up-to-date, the risk of bleeding seems to be acceptable with Lovenox. Did discuss with her daughters the potential risk of bleeding. They understand the necessity of treatment. Code(s): I82.403 - Acute embolism and thrombosis of unspecified deep veins of lower extremity, bilateral (2) Complex partial seizure disorder Current Visit: No Status: Chronic Comment: Continue Keppra. Code(s): G40.209 - Localization-related (focal) (partial) symptomatic epilepsy and epileptic syndromes with complex partial seizures, not intractable, without status epilepticus Qualifiers: Epilepsy type: partial symptomatic (3) Benign essential hypertension Current Visit: No Status: Chronic Onset Date: 10/07/12 Comment: I think we'll see her blood pressure and then decide if we will give her amlodipine tonight Code(s): I10 - Essential (primary) hypertension (4) Cellulitis Current Visit: Yes Status: Acute Comment: There may be an area of cellulitis in the left leg with the redness and some warmth and tenderness. This could be secondary to the DVT itself but I think the best course is to treat her with antibiotics and assess her response. Code(s): L03.90 - Cellulitis, unspecified
--- NOTE | 2019-05-31 15:00 | DI ---
CT ANGIOGRAM OF THE CHEST, 05/31/2019 12:40 PM : Clinical History: Dyspnea. Elevated D-dimer test. Previous Exam: None at this facility. Technique: Scans from base of neck to lung bases with IV contrast. Bolus tracking protocol was used f or timing the injection. Non-MIPS and MIPS sagittal/coronal images generated. IV Contrast: 75 mL of Ultravist 370.. Base of Neck: Normal. Nodes: Normal axillary, supraclavicular, mediastinal, and hilar lymph nodes. Heart: Normal. No coronary artery calcifications. Aorta: Aneurysmal dilatation of the ascending aorta with maximum AP and transverse dimensions of 38 m m. No dissection. Pulmonary Arteries: Marked pulmonary arterial hypertension. No pulmonary emboli. No pulmonary embolis m with infarction.2 Mediastinum: Normal. Lungs: No infiltrates. Minimal right lower lobe atelectasis. Effusion(s): None. Nodules: None. Bony Structures: Normal visualized portions of ribs, sternum, scapulae, clavicles, and shoulders. Nor mal visualized portions of thoracic spine. Osteoporosis. Limited Upper Abdomen: Normal adrenal glands and spleen. There is mild hepatomegaly and in the center of the right lobe of the liver is an irregularly-shaped 3 x 4 x 5 cm low-density lesion that probabl y represents a cyst. There may be fatty infiltration. There is some contrast in the right renal colle cting system in the technologist did have problems with initially injecting through the IV and had to restart the injection. READIN. Negative CTA of the chest. There are no pulmonary emboli or pulmonary infarcts. There is marked p ulmonary arterial hypertension. 2. Hepatomegaly. Probable fatty infiltration of the liver. 3 x 4 x 5 cm irregularly shaped low-densi ty lesion in the posterior aspect of the right lobe of the liver, probably representing a cyst. It is slightly higher than fluid density. Liver ultrasound can be performed to confirm that this is a cyst .
[2019-05-31] MEDS ORDERED: DOCUSATE 100 MG CAPSULE PO PRN (15:25)
[2019-05-31] MEDS ORDERED: ONDANSETRON 4 MG/2 ML VIAL IVP PRN (15:25)
[2019-05-31] MEDS ORDERED: CALCIUM CARBONATE 500 MG (TUMS) CHEWABLE TABLET PO PRN (15:25)
[2019-05-31] MEDS ORDERED: LIDOCAINE W/ SODIUM BICARB 0.5 ML SYR SUBD PRN (15:25)
[2019-05-31] MEDS: cefTRIAXone Inj 2 GM in Sodium Chloride 0.9% 100 ML IV SCH (16:05)
--- NOTE | 2019-05-31 16:19 | PDOC ---
General Adult HPI - General Chief Complaint: Lower Extremity Problem/Injury Stated Complaint: leg swelling and pain Date Seen by Provider: 05/31/19 Time Seen by Provider: 09:45 Source: POSITIVE: Patient, Other (daughters) Exam Limitations: POSITIVE: No limitations Nurse's Notes Reviewed & Considered: Yes - History of Present Illness Initial Comment: The patient is an 88-year-old female who is brought to the emergency room by her daughters. The patient lives alone in her old home, but her daughters check on her on a daily basis. 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 Patient does have a history of chronic dyspnea and is on oxygen, 3 L/m, continuously. The patient and her daughters report that for the last 4-5 days she has had progressive swelling to both of her legs and has developed some redness circumferentially around the distal portion of the left lower leg above the ankle. Patient reportedly has had some erythema and tenderness over this area for quite a while, and the patient reports that she sustained a deep laceration to this area as a child. The erythema and redness has worsened over the past several days. Patient does complain of some pain to both legs, left greater than right. Patient denies any fevers or chills. No head, chest or abdominal pain. Patient did have surgical excision of a large meningioma in 2017 and has had a left hip replacement. History of hypertension and hypothyroidism. The daughters report that the patient is becoming progressively less able to care for herself in her present living environment and they have made arrangements for the patient to be admitted to the [facility] this coming Saturday. Have you received a tetanus shot in the past 10 years?: Unknown Body Location Affected: REPORTS: Lower Extremity (L), Lower Extremity (R), Other (Becoming generally and progressively weak and unable to care for herself) Timing: REPORTS: Gradual, Getting Worse Duration: <1 week Severity: Moderate Quality: REPORTS: "Pain" (Both lower extremities) Context: REPORTS: Other (As above). DENIES: None, Sitting, Standing, Activity, Emotional stress, Coughing, Recent Trauma, Recent Surgery, Sleep, Rest, Lifting, Turning, Bending, Fall, Near Fall Modifying Factors: improves with: Nothing, Other (Patient normally ambulates with a walker) Associated Symptoms: Some increased shortness of breath Similar Symptoms Previously: Yes (as above) Recent Care Received: REPORTS: Recently Seen (Patient was seen in the emergency room on 05/13/2019 with symptoms of forgetfulness and progressive inability to care for herself at home; she was seen by a director of social work at that time.) Any Prior Injuries Related to Current Complaint?: No - Patient Home Medications Home Medications: Home Medications Oxygen (O2) 1 unit RICHAR DAILY #2 unit 08/09/15 levetiracetam 500 mg tablet 500 mg PO QAM #30 tab 03/25/19 amlodipine 10 mg tablet 10 mg PO QHS #30 tab 04/23/19 levothyroxine 25 mcg tablet 25 mcg PO QD #30 tab 04/23/19 - Patient Allergies Allergies/Adverse Reactions: Allergies Allergy/AdvReac Type Severity Reaction Status Date / Time benzalkonium chloride Allergy unknown Verified 05/31/19 09:27 [From Merthiolate (benzalkonium)] Past Medical History - heen HEENT History: Denies History Cardiovascular History: Hypertension, DVTs Respiratory History: Home Oxygen Use Gastrointestinal History: Denies History Genitourinary History: Denies History Endocrine History: Hypothyroidism Musculoskeletal History: Other (please comment) Prosthesis or Implant: No Additional Musculoskeletal History: USES WALKER Neurological History: Other (please comment) Additional Neurological History: BRAIN TUMOR REMOVED WITH CHEMO AND RADIATION TREATMENT 2016, Per patient's daughter, Delores, tumor has returned, 05/2019. Blood Disorders: Clotting Disorders Psychiatric History: Denies History History of Sexually Transmitted Diseases: No Female Reproductive History: Denies History Obstetrical History: Denies History Cancer History: Denies History In Past Year Been Physically Harmed or Verbally Threatened: No History of MDRO: No History of Other Communicable Diseases: No Tobacco Use: Never Smoker Alcohol Use: None In the Past 12 Months, Have Used or Abuse Any Substance: None Previous Surgical History: No Type / Date of Surgery: REMOVAL BRAIN TUMOR. THR. ORIF LEFT WRIST Anesthesia Reactions: No Malignant Hyperthermia: No Significant Family History: No pertinent family hx Past Medical History Reviewed: Reviewed - No Changes ROS - Limitations ROS Limitations: No Limitations Constitution: REPORTS: Weakness Cardiovascular: REPORTS: Denies Cardiac Symptoms Respiratory: REPORTS: Shortness Of Breath Neurological: REPORTS: Denies Neuro Symptoms Gastrointestinal: REPORTS: Denies GI Symptoms Endocrine: REPORTS: Denies Symptoms Musculoskeletal: REPORTS: Denies MS Symptoms Genitourinary: REPORTS: Denies Symptoms Eyes: REPORTS: Denies Symptoms ENT: REPORTS: Denies Symptoms Skin: REPORTS: Other (Erythema, warmth and tenderness distal aspect of left lower extremity) Lympathic: REPORTS: Denies Lympathic Symptoms Immunologic: POSITIVE: Denies Symptoms Psychiatric: POSITIVE: Denies Psych Symptoms General Adult Exam - General Appearance General Appearance: POSITIVE: Alert, Cooperative, No Acute Distress, No Evidence of Trauma - HEENT HEENT: POSITIVE: Head Inspection Nml, Eyes Inspection Nml, Ears Inspection Nml, Nose Inspection Nml, Oral/Dental Inspect. Nml, Pharynx Inspect. Nml, PERRL, EOMI - Pupils Pupil Size: 3 mm: Bilateral - Neck Neck: POSITIVE: Normal Inspection, Thyroid Normal - Respiratory Respiratory: POSITIVE: No Respiratory Distress, Breath Sounds Normal, Chest Non- Tender - Cardiovascular Cardiovascular: POSITIVE: Regular Rate & Rhythm, No Murmur, No Gallop, PMI No rmal Peripheral Pulses: Radial (R): 2+, Radial (L): 2+, Dorsalis-pedis (R): 2+, Dorsalis-pedis (L): 2+ - Abdomen Abdomen: Soft: (All Quadrants), Normal Bowel Sounds: (All Quadrants), Denies Tenderness: (All Quadrants), No Splenomegaly: (All Quadrants), No Hepatomegaly: (All Quadrants), No Guarding: (All Quadrants), No Rebound: (All Quadrants), No Palpable Pulse: (All Quadrants), No Palpabale Mass: (All Quadrants), No Distention: (All Quadrants), No Rigidity: (All Quadrants) - Back Back: POSITIVE: Normal Inspection - Skin Skin: POSITIVE: Warmth, Erythema (Erythema warmth and tenderness distal aspect of left lower extremity) - Extremities Extremity: Non-Tender: (LUE), (RUE), Normal ROM: (All Extremities), Normal Inspection: (RUE), (LUE), Pelvis Stable: (All Extremities), Normal Tendon Exam: (All Extremities), Edema / Swelling: (RLE), (LLE), Calf Tenderness: (RLE), (LLE), Tender: (RLE), (LLE), Erythema: (LLE) Additional Extremities Details: Extremity examination shows swelling of both lower extremities, especially distally. She has an area of warmth erythema and tenderness over the distal aspect of the left lower extremity; patient states she has had some redness and tenderness over this area ever since she sustained a deep laceration here as a child, but the area of redness and warmth and tenderness has expanded over the last 4-5 days. Patient complains of some poorly localized tenderness both lower extremities from the ankles to the mid thighs. Distal pulses are full. - Neurological / Psychological Neurological: POSITIVE: Affect Apporpriate, Oriented X3, community educator Normal As Tested, Motor Normal, Sensation Normal Images - Complete Complete: 1 - Edema and tenderness 2 - Erythema warmth and tenderness General Adult Progress - Results Reviewed by me Xrays/CTs/US Reviewed by me: Yes Discussed with Radiologist: Yes Radiology Findings: CT a chest shows no pulmonary emboli or infarcts according to radiologist. Radiologist reports marked pulmonary arterial hypertension. Venous duplex ultrasound of both lower extremities shows "clots is present in both legs from the common iliac veins and extending to the superficial veins at the level of Dain's canal. Clot is also present in both deep femoral veins. The left popliteal vein is not visualized. There is clot in the greater saphenous vein and proximal left thigh up to the common femoral vein the right greater saphenous vein is patent. Lab Results Reviewed by Me: Yes (d-dimer 15,790, INR 1.02, CRP 4.5) Lab Results:: Laboratory Results 05/31/19 05/31/19 05/31/19 10:00 10:00 10:00 WBC 8.97 RBC 4.05 L Hgb 12.2 Hct 37.1 MCV 91.6 MCH 30.1 MCHC 32.9 L RDW Std Deviation 50.8 H RDW Coeff of Gwen 15.6 H Plt Count 376 H MPV 9.5 Neutrophils % (Manual) 73 Band Neutrophils % 2 Lymphocytes % (Manual) 15 Monocytes % (Manual) 6 Eosinophils % (Manual) 2 Basophils % (Manual) 2 H Metamyelocytes % 0 Myelocytes % 0 Promyelocytes % 0 Blast Cells 0 WBC Morphology Comment Normal morphology Plt Morphology Comment Normal morphology RBC Morph Comment See comments PT 12.2 INR 1.06 D-Dimer 58707 H VBG pH VBG pCO2 VBG HCO3 VBG Base Excess Sodium 141 Potassium 4.2 Chloride 105 Carbon Dioxide 29 Anion Gap 7 BUN 22 Creatinine 0.7 BUN/Creatinine Ratio 31.42 H Glucose 99 Calculated Osmolality 294.0 H Lactic Acid Calcium 9.5 Total Bilirubin 0.3 AST 34 ALT 21 Alkaline Phosphatase 114 Total Creatine Kinase 59 Troponin I C-Reactive Protein 4.5 H NT-Pro-B Natriuret Pep 156 Total Protein 6.7 Albumin 3.5 Globulin 3.2 Albumin/Globulin Ratio 1.00 L Ur Collection Type Urine Color Urine Clarity Urine pH Ur Specific [place] Urine Protein Urine Glucose (UA) Urine Ketones Urine Occult Blood Urine Nitrate Urine Bilirubin Urine Urobilinogen Ur Leukocyte Esterase Urine RBC Urine WBC Ur Squamous Epith Cells Ur Renal Epithelial Cell Urine Crystals Urine Bacteria Urine Casts Urine Mucus Urine Trichomonas Urine Yeast Ur Culture Indicated? 05/31/19 05/31/19 05/31/19 10:00 10:00 10:10 WBC RBC Hgb Hct MCV MCH MCHC RDW Std Deviation RDW Coeff of Gwen Plt Count MPV Neutrophils % (Manual) Band Neutrophils % Lymphocytes % (Manual) Monocytes % (Manual) Eosinophils % (Manual) Basophils % (Manual) Metamyelocytes % Myelocytes % Promyelocytes % Blast Cells WBC Morphology Comment Plt Morphology Comment RBC Morph Comment PT INR D-Dimer VBG pH 7.42 VBG pCO2 43 L VBG HCO3 28 H VBG Base Excess 3 H Sodium Potassium Chloride Carbon Dioxide Anion Gap BUN Creatinine BUN/Creatinine Ratio Glucose Calculated Osmolality Lactic Acid 1.1 Calcium Total Bilirubin AST ALT Alkaline Phosphatase Total Creatine Kinase Troponin I < 0.012 C-Reactive Protein NT-Pro-B Natriuret Pep Total Protein Albumin Globulin Albumin/Globulin Ratio Ur Collection Type Urine Color Urine Clarity Urine pH Ur Specific [place] Urine Protein Urine Glucose (UA) Urine Ketones Urine Occult Blood Urine Nitrate Urine Bilirubin Urine Urobilinogen Ur Leukocyte Esterase Urine RBC Urine WBC Ur Squamous Epith Cells Ur Renal Epithelial Cell Urine Crystals Urine Bacteria Urine Casts Urine Mucus Urine Trichomonas Urine Yeast Ur Culture Indicated? 05/31/19 12:40 WBC RBC Hgb Hct MCV MCH MCHC RDW Std Deviation RDW Coeff of Gwen Plt Count MPV Neutrophils % (Manual) Band Neutrophils % Lymphocytes % (Manual) Monocytes % (Manual) Eosinophils % (Manual) Basophils % (Manual) Metamyelocytes % Myelocytes % Promyelocytes % Blast Cells WBC Morphology Comment Plt Morphology Comment RBC Morph Comment PT INR D-Dimer VBG pH VBG pCO2 VBG HCO3 VBG Base Excess Sodium Potassium Chloride Carbon Dioxide Anion Gap BUN Creatinine BUN/Creatinine Ratio Glucose Calculated Osmolality Lactic Acid Calcium Total Bilirubin AST ALT Alkaline Phosphatase Total Creatine Kinase Troponin I C-Reactive Protein NT-Pro-B Natriuret Pep Total Protein Albumin Globulin Albumin/Globulin Ratio Ur Collection Type Cath specimen Urine Color Yellow Urine Clarity Clear Urine pH 5.5 Ur Specific [place] 1.015 Urine Protein 30 A Urine Glucose (UA) Negative Urine Ketones 15 Urine Occult Blood Negative Urine Nitrate Negative Urine Bilirubin Small Urine Urobilinogen 0.2 Ur Leukocyte Esterase Small Urine RBC 0-1 Urine WBC 2-4 Ur Squamous Epith Cells Few Ur Renal Epithelial Cell None Urine Crystals None Urine Bacteria Rare Urine Casts None Urine Mucus Many Urine Trichomonas None Urine Yeast None Ur Culture Indicated? Culture not set CBC and BMP: 05/31/19 10:00 05/31/19 10:00 EKG Interpreted/Reviewed By Me:: Yes (right bundle-branch block) EKG Interpretation:: POSITIVE: Normal Sinus Rhythm, Normal Rate, Abnormal EKG (Right bundle-branch block), Previous EKG Reviewed. NEGATIVE: Normal Intervals, Normal Elbert (Interventricular conduction delay), Normal QRS (Right bundle-branch block), Normal ST/T (Right bundle-branch block), Unchanged - Patient's Progress Pain Medication Addressed: POSITIVE: Not Applicable School/Work Release Addressed: POSITIVE: Not Applicable Re-Examine Time: 13:00 Re-Examine Comment: Results of his discussed with the patient and her 2 daughters. Patient does have prominent deep vein thrombosis in both legs and probably a cellulitis in the right lower leg. Case was discussed with hospitalist on-call, Dr. Vivar, and patient is admitted for further evaluation and treatment. Patient was given Lovenox, 1 mg/kg subcutaneously in the emergency room. Status: POSITIVE: Unchanged, Re-Examined Antibiotics Given: No - Consult Consult (If Yes, Name of Consulting MD & Time Called): Yes (Dr. Vivar, hospitalist, [id number]) Consulting MD will see pt:: [place] [facility] [place] Counseled: POSITIVE: Patient, Family, RE: Lab Results, RE: Radiology Results, RE: DX, RE: Need for F/U Patient Care Time - Estimated PCT Patient Care Time (In Minutes): 60 Vital Signs - Recent Vital Signs Vital Signs: Vital Signs (Last 8 hours) Temp Pulse Resp BP Pulse Ox 05/31/19 09:30 97.0 F 97 21 126/74 93 - VS Reviewed Vital Signs Reviewed: Yes Discharge Clinical Impression: Deep vein thrombosis, Cellulitis Discharge Disposition: Admit to Inpatient Condition: Fair Patient Problem(s) Reviewed: Yes Date Decision to Admit to Inpatient: 05/31/19 Time Decision to Admit to Inpatient: 13:00
[2019-05-31] MEDS: LevETIRAcetam Tab 500 MG TABLET PO SCH (20:56)
[2019-05-31] MEDS: ACETAMINOPHEN 325 MG TABLET PO PRN (23:40)
[2019-06-01] MEDS: ENOXAPARIN SODIUM 60 MG/0.6 ML SYRINGE SUBCUT SCH ×2 (02:17→14:57)
[2019-06-01] MEDS: LEVOTHYROXINE 25 MCG TABLET PO SCH (04:57)
[2019-06-01] MEDS: ACETAMINOPHEN 325 MG TABLET PO PRN (07:04)
--- NOTE | 2019-06-01 07:26 | PDOC(PROG) ---
Date of Service: 06/01/19 Time of Service: 07:20 Interval History: Subjective The Patient said she had some pain under her left breast that started a few minutes ago. She is denying shortness of breath. The pain is unrelated to taking deep breath. Then she said she has some pain in her heels but denying ot her symptoms. She Is not sure why she is in the hospital. She couldn't tell me the day or the month or the year. Objective : Data - Labs CBC and BMP: 05/31/19 10:00 05/31/19 10:00 Objective : Exam - General General Appearance: No Acute Distress, Cooperative - Head Head Exam: Normal Inspection - Eye Eye Exam: Normal Appearance - ENT ENT Exam: Normal Exam - Neck Neck Exam: Normal Inspection - Respiratory Respiratory Exam: Clear to Auscultation - Bilaterally - Cardiovascular Cardiovascular Exam: RRR - GI/Abdominal GI/Abdominal Exam: Normal Bowel Sounds, Non Tender, Non Distended, Soft, No Organomegaly - Rectal Rectal Exam: Deferred - External Exam: Deferred - Extremities Additional Extremities Exam Details: Bilateral leg edema noted. There is still some redness in the left lower leg some tenderness in some spots noted. - Back Back Exam: Normal Inspection - Neurological Neurological Exam: Alert, CN II-XII Intact, No Facial Droop, Speech Intact / Clear, Moves All Extremities Equally - Psychiatric Psychiatric Exam: Flat Affect Assessment and Plan - Patient Problems (1) DVT, bilateral lower limbs Current Visit: Yes Status: Acute Comment: Continue Lovenox for now. CT that she had yesterday was negative for PE. Not sure about the etiology of the pain under her left breast. I think will repeat her EKG. She has some problem with cognition so the history is somewhat limited. 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 Code(s): I10 - Essential (primary) hypertension (4) Cellulitis Current Visit: Yes Status: Acute Comment: There is an area of redness in the left leg. The daughters did say that she had redness there before but it was more intense in reddenss yesterday. We elected to treat with antibiotics for possible cellulitis I think we'll continue with it. Code(s): L03.90 - Cellulitis, unspecified
--- NOTE | 2019-06-01 08:13 | EKG ---
[address] [place] [address] Measurements Intervals [place] Rate: 80 P: 74 CO: 132 QRS: -20 QRSD: 145 T: -20 QT: 414 QTc: 450 Interpretive Statements SINUS RHYTHM WITH OCCASIONAL VENTRICULAR PREMATURE COMPLEXES INDETERMINATE AXIS RIGHT BUNDLE BRANCH BLOCK MODERATE T-WAVE ABNORMALITY, CONSIDER INFERIOR ISCHEMIA Compared to ECG 05/31/2019 10:23:08 Ventricular premature complex(es) now present T-wave abnormality now present Possible ischemia now present Electronically Signed On 06-01-19 15:03:42 MDT by Reese Rowley [email or web address]
[2019-06-01] MEDS: LevETIRAcetam Tab 500 MG TABLET PO SCH ×2 (09:16→20:45)
[2019-06-01] MEDS: cefTRIAXone Inj 2 GM in Sodium Chloride 0.9% 100 ML IV SCH (14:56)
[2019-06-02] MEDS: ENOXAPARIN SODIUM 60 MG/0.6 ML SYRINGE SUBCUT SCH ×2 (02:38→14:19)
[2019-06-02 04:39] LABS: Hematocrit [HCT] 33.4 % (37.0-47.0); Hemoglobin [HGB] 10.8 g/dL (12.0-16.0); MEAN CORPUSCULAR HGB CONC 32.3 g/dL (33-37); MEAN PLATELET VOLUME 9.7 FL (7.4-12.2); RED BLOOD COUNT 3.59 10^6/uL (4.20-5.40)
[2019-06-02] MEDS: LEVOTHYROXINE 25 MCG TABLET PO SCH (05:08)
[2019-06-02 05:10] LABS: BAND NEUTROPHILS % 2 % (0-10); BASOPHILS % (MANUAL) 0 % (0-1); EOSINOPHILS % (MANUAL) 2 % (0-8); METAMYELOCYTES % 4 %; MONOCYTES % (MANUAL) 6 % (0-12); MYELOCYTES % 2 %; NEUTROPHILS % (MANUAL) 65 % (50-80); PLATELET MORPHOLOGY COMMENT NORMAL MORPHOLOGY (NORM); PROMYELOCYTES % 0 %; RBC MORPHOLOGY COMMENT NORMAL MORPHOLOGY (NORM); WBC MORPHOLOGY COMMENT NORMAL MORPHOLOGY (NORM)
[2019-06-02 05:32] LABS: BLOOD UREA NITROGEN 16 mg/dL (7-22); BUN/CREATININE RATIO 26.66 (6-20)
--- NOTE | 2019-06-02 09:39 | PDOC(PROG) ---
Date of Service: 06/02/19 Time of Service: 09:40 Interval History: Subjective Patient still doesn't remember today the reason for her being in the hospital. I did explain again to her that she had DVT. She is denying chest pain, shortness of breath. Denying pain in her legs. Objective : Data - Labs CBC and BMP: 06/02/19 04:15 06/02/19 04:15 Objective : Exam - General General Appearance: No Acute Distress, Cooperative - Head Head Exam: Normal Inspection - Eye Eye Exam: Normal Appearance - ENT ENT Exam: Normal Exam - Neck Neck Exam: Normal Inspection - Respiratory Respiratory Exam: Clear to Auscultation - Bilaterally - Cardiovascular Cardiovascular Exam: RRR - GI/Abdominal GI/Abdominal Exam: Normal Bowel Sounds, Non Tender, Non Distended, Soft, No Organomegaly - Rectal Rectal Exam: Deferred - External Exam: Deferred - Extremities Additional Extremities Exam Details: Still have swelling both legs but maybe a little bit less compared to yesterday. The redness in the left lower leg may be less intensely red compared to yesterday. No tenderness present today. - Neurological Neurological Exam: Alert, CN II-XII Intact, No Facial Droop, Speech Intact / Clear - Psychiatric Psychiatric Exam: Flat Affect Assessment and Plan - Patient Problems (1) DVT, bilateral lower limbs Current Visit: Yes Status: Acute Comment: Continue Lovenox I think we'll switch her tomorrow to elquis Code(s): I82.403 - Acute embolism and thrombosis of unspecified deep veins of lower extremity, bilateral (2) Complex partial seizure disorder Current Visit: No Status: Chronic Comment: Continue Keppra Code(s): G40.209 - Localization-related (focal) (partial) symptomatic epilepsy and epileptic syndromes with complex partial seizures, not intractable, without status epilepticus Qualifiers: Epilepsy type: partial symptomatic (3) Benign essential hypertension Current Visit: No Status: Chronic Onset Date: 10/07/12 Comment: Blood pressure seem to be still acceptable without the amlodipine will continue holding it. Code(s): I10 - Essential (primary) hypertension (4) Cellulitis Current Visit: Yes Status: Acute Comment: Continue Rocephin. The plan is to go to the [facility] tomorrow so I think tomorrow we'll switch her to oral antibiotics. There is chronicity to the reddness but family reported that it was more red than usual so we elected to treat. Code(s): L03.90 - Cellulitis, unspecified
[2019-06-02] MEDS: LevETIRAcetam Tab 500 MG TABLET PO SCH ×2 (10:19→20:19)
--- NOTE | 2019-06-02 10:55 | DI ---
US Abdomen Limited,06/02/2019 7:00 AM: Clinical History: Hepatic cyst. Previous Exam: None at this facility. 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 The gallbladder is unremarkable. The gallbladder wall is thickened especially involving the dome of the gallbladder. There is no stones. The right kidney measures 9.7 cm in length without hydronephrosis nor nephrolithi asis. The common bile duct measures 4 mm. Impression: Mild thickening of the gallbladder wall without stones nor pericholecystic fluid. Complex cystic mass corresponding with the complex cyst seen on the CT chest angiogram.
[2019-06-02] MEDS: cefTRIAXone Inj 2 GM in Sodium Chloride 0.9% 100 ML IV SCH (15:14)
[2019-06-02] MEDS: ACETAMINOPHEN 325 MG TABLET PO PRN (18:55)
[2019-06-03] MEDS: ENOXAPARIN SODIUM 60 MG/0.6 ML SYRINGE SUBCUT SCH ×2 (02:49→14:09)
[2019-06-03] MEDS: LEVOTHYROXINE 25 MCG TABLET PO SCH (04:42)
[2019-06-03] MEDS: Potassium Chloride Tab 10 MEQ TAB PO SCH (09:08)
[2019-06-03] MEDS: LevETIRAcetam Tab 500 MG TABLET PO SCH ×2 (09:09→20:35)
--- NOTE | 2019-06-03 13:22 | PDOC(PROG) ---
Date of Service: 06/03/19 Time of Service: 11:00 Interval History: Subjective Patient have memory issues, so she doesn't remember why she is in the hospital. She denies pain in the leg or shortness of breath today. Left leg still swollen. There is still redness to left lower leg. I think this is probably chronic. It's not tender. She is having epistaxis today. Despite applying pressure continued to lose. I consulted Dr. Gar Objective : Data - Labs CBC and BMP: 06/02/19 04:15 06/02/19 04:15 Objective : Exam - General General Appearance: No Acute Distress, Cooperative - Head Head Exam: Normal Inspection - Eye Eye Exam: Normal Appearance - Neck Neck Exam: Normal Inspection - Respiratory Respiratory Exam: Clear to Auscultation - Bilaterally - Cardiovascular Cardiovascular Exam: RRR - GI/Abdominal GI/Abdominal Exam: Normal Bowel Sounds, Non Tender, Non Distended, No Organomegaly - Rectal Rectal Exam: Deferred - External Exam: Deferred - Extremities Additional Extremities Exam Details: Left leg is more swollen than the right leg. There is still redness in the left lower leg I think this is chronic. Nontender. - Back Back Exam: Normal Inspection - Neurological Neurological Exam: Alert, CN II-XII Intact, No Facial Droop, Speech Intact / Clear, Moves All Extremities Equally - Psychiatric Psychiatric Exam: Normal Affect Assessment and Plan - Patient Problems (1) DVT, bilateral lower limbs Current Visit: Yes Status: Acute Comment: Continue Lovenox. The plan is to switch to eliquis tomorrow morning. So she'll get 1 dose of Lovenox today. And start eliquis tomorrow morning. Code(s): I82.403 - Acute embolism and thrombosis of unspecified deep veins of lower extremity, bilateral (2) Complex partial seizure disorder Current Visit: No Status: Chronic Comment: Same medication Code(s): G40.209 - Localization-related (focal) (partial) symptomatic epilepsy and epileptic syndromes with complex partial seizures, not intractable, without status epilepticus Qualifiers: Epilepsy type: partial symptomatic (3) Benign essential hypertension Current Visit: No Status: Chronic Onset Date: 10/07/12 Comment: Blood pressure is acceptable without the amlodipine continue without it. Code(s): I10 - Essential (primary) hypertension (4) Cellulitis Current Visit: Yes Status: Acute Comment: I think the area of left leg is more chronic. We treated with Rocephin because the daughter said it's more red than usual. I think we can switch to oral medication today. Code(s): L03.90 - Cellulitis, unspecified (5) Epistaxis Current Visit: Yes Status: Acute Comment: Did ask Dr. Gar to see her, she has a perforation apparently in the nasal cavity and she was bleeding from the edges. He did cauterize the area and the bleeding seemed to be stopped. Code(s): R04.0 - Epistaxis
[2019-06-03] MEDS ORDERED: LIDOCAINE HCL 5 ML JEL TOPICAL ONE (13:26)
[2019-06-03 15:31] LABS: BILIRUBIN,URINE NEGATIVE (NEG); CLARITY,URINE CLEAR (CLEAR); COLOR,URINE YELLOW (Y); GLUCOSE, URINE (UA) NEGATIVE (NEG); OCCULT BLOOD,URINE NEGATIVE (NEG); PH,URINE 5.5 (5.0-8.5); PROTEIN,URINE 30 mg/dl (NEG); UROBILINOGEN,URINE 0.2 EU/dL (0.2)
[2019-06-03 15:46] LABS: URINE CRYSTALS FEW; URINE SAMPLE TYPE CLEAN CATCH URINE
[2019-06-03] MEDS: CEPHALEXIN 500 MG CAPSULE PO SCH ×2 (16:36→20:35)
[2019-06-04] MEDS: ACETAMINOPHEN 325 MG TABLET PO PRN (05:12)
[2019-06-04] MEDS: LEVOTHYROXINE 25 MCG TABLET PO SCH (05:13)
[2019-06-04] MEDS ORDERED: Apixaban 5 MG TABLET PO SCH ×2 (06:00)
[2019-06-04] MEDS ORDERED: FUROSEMIDE 20 MG TABLET PO SCH (07:00)
[2019-06-04 07:32] VITALS: RESP 21
[2019-06-04] MEDS: LevETIRAcetam Tab 500 MG TABLET PO SCH (08:29)
[2019-06-04] MEDS: CEPHALEXIN 500 MG CAPSULE PO SCH ×2 (08:29→14:15)
[2019-06-04] MEDS: Potassium Chloride Tab 10 MEQ TAB PO SCH (08:29)
--- NOTE | 2019-06-04 10:00 | DCSUMMARY ---
Hospitalization Summary Admit Date: 05/31/2019 Discharge Date: 06/04/19 Hospital Course: Discharge diagnoses 1. Bilateral DVT 2. Chronic nasal septal perforation 3. Epistaxis from the edge of the perforation, resolved 4. History of hypothyroidism 5. Hypertension 6. 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 History of previous DVT 8. History of hypoxemia on oxygen 9. History of complex partial seizure on Keppra 10. Question of a cellulitis left lower leg versus a chronic skin changes from previous trauma Hospital course This is an 88 years old female with medical history significant for history of meningioma with previous resection and chemoradiation which recently recurred in March 2019 and had radiation treatment again for it, history of DVT in the past was on Xarelto, history of hypertension who was brought Hospital by the daughters because of swelling in both legs and some increased redness in the left lower leg above the ankle. Evaluation in the ER revealed bilateral DVT there was question also of cellulitis she was given Lovenox and was admitted. A CT of the chest was negative for PE. The patient has some cognitive impairments since the recurrence of the tumor so she could not provide a clear history and the history is provided by the daughters. They did say that they arranged for her to go to a assisted. the patient was admitted to the hospital was put on Lovenox. We did give her a trial of treatment with the Rocephin for the area of redness in the left lower leg. It's hard to say whether this is just a chronic condition or there is a cellulitis. Blood culture remained negative. She did have some bleeding from her nose and she has a perforation the septum that she was unaware of. There was some bleeding from the edges. I did ask Dr. Gar to see her and he did cauterize it and the bleeding seemed to be stopped. On the day of discharge she was denying complaint and the epistaxis stopped. We did switch her to eliquis instead of the Lovenox. She did have significant edema this may be secondary to the DVT itself but it is pitting edema and she was recently treated with steroid and she was on amlodipine. I stopped the amlodipine and put her on Lasix to see whether that would help with the edema. Her chemistry needs to be watched. I did discuses it with Dr. Askew. Discharge instruction Diet regular Activity as tolerated Medications For medication list please see the form to the assisted. Condition at discharge was stable for discharge Exam - Vitals Vital Signs: Vital Signs Temperature 97.4 F Temperature Source Temporal Artery Scan Pulse Rate [Apical] 70 Pulse Rate [Pulse Oximeter 89 Right] Pulse Rate 68 Respiratory Rate 21 Blood Pressure [Right Arm] 140/66 Blood Pressure [Left Arm] 114/56 Blood Pressure 114/64 Pulse Ox 96 Oxygen Flow Rate 3.5 Oxygen Delivery Method Mask-Simple Height 4 ft 9 in Weight 137 lb 6.4 oz - General General Appearance: No Acute Distress, Cooperative - Head Head Exam: Normal Inspection - Eye Eye Exam: POSITIVE: Normal Appearance - Neck Neck Exam: Normal Inspection - Respiratory Respiratory Exam: POSITIVE: Clear to Auscultation - Bilaterally - Cardiovascular Cardiovascular Exam: POSITIVE: RRR - GI/Abdominal GI/Abdominal Exam: POSITIVE: Normal Bowel Sounds, Non Tender, Non Distended, Soft, No Organomegaly - Rectal Rectal Exam: POSITIVE: Deferred - External Exam: POSITIVE: Deferred - Extremities Additional Extremities Exam Details: left leg more swollen than the right leg, bilateral pitting edema. area of redness in the left lower leg seems some waht better than before. - Back Back Exam: POSITIVE: Normal Inspection - Neurological Neurological Exam: POSITIVE: Alert, CN II-XII Intact, No Facial Droop, Speech I ntact / Clear, Moves All Extremities Equally - Psychiatric Psychiatric Exam: POSITIVE: Normal Affect Patient Problems - Patient Problem List (1) DVT, bilateral lower limbs Status: Acute Code(s): I82.403 - Acute embolism and thrombosis of unspecified deep veins of lower extremity, bilateral Category: Medical (2) Complex partial seizure disorder Status: Chronic Code(s): G40.209 - Localization-related (focal) (partial) symptomatic epilepsy and epileptic syndromes with complex partial seizures, not intractable, without status epilepticus Qualifiers: Epilepsy type: partial symptomatic Category: Medical (3) Benign essential hypertension Status: Chronic Onset Date: 10/07/12 Code(s): I10 - Essential (primary) hypertension Category: Medical (4) Cellulitis Status: Acute Code(s): L03.90 - Cellulitis, unspecified Category: Medical (5) Epistaxis Status: Acute Code(s): R04.0 - Epistaxis Category: Medical
[2019-06-04 11:34] VITALS: BP 118/58; TEMP 98.3; O2SAT 99
== END 2019-06-04 14:38 | DRG 603 ==
LOC: ER 09:25 → MED/SURG 14:40
PROVIDERS: ADMIT Internal Medicine; ATTEND Internal Medicine

== ENCOUNTER 2019-10-05 07:37 | Inpatient (IN) ==
[2019-10-05] MEDS ORDERED: ONDANSETRON 4 MG/2 ML VIAL IVP ONE (07:38)
[2019-10-05] MEDS ORDERED: Acetaminophen 1000mg Inj 1,000 MG/100 ML VIAL IV PRN (07:38)
[2019-10-05] MEDS ORDERED: Sodium Chloride 0.9% 1,000 ML PRIMARY IV ONE (07:38)
[2019-10-05 07:57] LABS: VENOUS PH 7.53 (7.32-7.42)
[2019-10-05 08:16] LABS: BASOPHILS # (AUTO) 0.03 10*3/UL; BASOPHILS % (AUTO) 0.3 % (0-1); EOSINOPHILS # (AUTO) 0 10*3/UL; EOSINOPHILS % (AUTO) 0 % (0-8); Hematocrit [HCT] 40.4 % (37.0-47.0); Hemoglobin [HGB] 13.1 g/dL (12.0-16.0); LYMPHOCYTES # (AUTO) 0.68 10*3/uL; MEAN CORPUSCULAR HGB CONC 32.4 g/dL (33-37); MEAN CORPUSCULAR VOLUME 83.5 FL (81-99); MEAN PLATELET VOLUME 10.7 FL (7.4-12.2); MONOCYTES # (AUTO) 0.68 10*3/UL (0.3-0.8); MONOCYTES % (AUTO) 6.2 % (5-15); NEUTROPHILS # (AUTO) 9.58 10*3/UL; RED BLOOD COUNT 4.84 10^6/uL (4.20-5.40)
[2019-10-05 08:26] LABS: BLOOD UREA NITROGEN 17 mg/dL (7-22); BUN/CREATININE RATIO 21.25 (6-20); PLATELET MORPHOLOGY COMMENT NORMAL MORPHOLOGY (NORM); RBC MORPHOLOGY COMMENT NORMAL MORPHOLOGY (NORM); SERUM ALBUMIN 4.4 g/dL (3.5-4.8); WBC MORPHOLOGY COMMENT NORMAL MORPHOLOGY (NORM)
[2019-10-05 08:32] LABS: SALICYLATE < 1.0 mg/dl (0-20)
[2019-10-05 08:36] LABS: BILIRUBIN,URINE SMALL (NEG); CLARITY,URINE CLEAR (CLEAR); COLOR,URINE YELLOW (Y); GLUCOSE, URINE (UA) NEGATIVE (NEG); OCCULT BLOOD,URINE MODERATE (NEG); PH,URINE 5.5 (5.0-8.5); PROTEIN,URINE NEGATIVE (NEG); UROBILINOGEN,URINE 0.2 EU/dL (0.2)
[2019-10-05 08:38] LABS: URINE SAMPLE TYPE CATH SPECIMEN; URINE SPECIFIC GRAVITY - MAN 1.019
[2019-10-05 08:45] LABS: AMPHETAMINE SCREEN NEGATIVE (NEG); BACTERIA,URINE FEW; CANNABINOID SCREEN,URINE NEGATIVE (NEG); COCAINE SCREEN NEGATIVE (NEG); METHADONE URINE SCREEN NEGATIVE (NEG); METHAMPHETAMINES SCREEN,URINE NEGATIVE (NEG); OPIATE SCREEN,URINE NEGATIVE (NEG); WBC,URINE RARE
[2019-10-05 08:56] LABS: Erythrocyte Sediment Rate 17 MM/HR (0-20)
[2019-10-05] MEDS ORDERED: Ertapenem Inj 1 GM in Sodium Chloride 0.9% 100 ML IV ONE (10:19)
[2019-10-05] MEDS ORDERED: CALCIUM CARBONATE 500 MG (TUMS) CHEWABLE TABLET PO PRN (12:24)
[2019-10-05] MEDS ORDERED: DOCUSATE 100 MG CAPSULE PO PRN (12:24)
[2019-10-05] MEDS ORDERED: LIDOCAINE W/ SODIUM BICARB 0.5 ML SYR SUBD PRN (12:24)
[2019-10-05] MEDS ORDERED: LIDOCAINE HCL 2 % 10 ML JELLY URO-JECT TOPICAL PRN (12:24)
[2019-10-05] MEDS ORDERED: ONDANSETRON 4 MG/2 ML VIAL IVP PRN (12:24)
[2019-10-05] MEDS ORDERED: HEPARIN 5000 UNIT/1 ML SUBCUT SCH (12:24)
[2019-10-05] MEDS ORDERED: ACETAMINOPHEN 325 MG TABLET PO PRN (12:24)
[2019-10-05] MEDS: Lactated Ringers 1,000 ML PRIMARY IV SCH ×2 (13:34→23:14)
[2019-10-05] MEDS: Cefepime Inj 2 GM in Sodium Chloride 0.9% 100 ML IV SCH (13:34)
[2019-10-05] MEDS ORDERED: FUROSEMIDE 10 MG/1 ML - 4 ML IVP ONE (14:53)
[2019-10-05] MEDS: ENOXAPARIN SODIUM 60 MG/0.6 ML SYRINGE SUBCUT SCH (20:19)
[2019-10-06] MEDS: Cefepime Inj 2 GM in Sodium Chloride 0.9% 100 ML IV SCH (00:47)
[2019-10-06 04:28] LABS: BASOPHILS # (AUTO) 0.05 10*3/UL; BASOPHILS % (AUTO) 0.5 % (0-1); EOSINOPHILS # (AUTO) 0.03 10*3/UL; EOSINOPHILS % (AUTO) 0.3 % (0-8); Hematocrit [HCT] 35.3 % (37.0-47.0); Hemoglobin [HGB] 11.2 g/dL (12.0-16.0); LYMPHOCYTES # (AUTO) 1.03 10*3/uL; MEAN CORPUSCULAR HGB CONC 31.7 g/dL (33-37); MEAN CORPUSCULAR VOLUME 85.5 FL (81-99); MEAN PLATELET VOLUME 10.9 FL (7.4-12.2); MONOCYTES # (AUTO) 0.98 10*3/UL (0.3-0.8); MONOCYTES % (AUTO) 9.8 % (5-15); NEUTROPHILS # (AUTO) 7.85 10*3/UL; NEUTROPHILS % (AUTO) 78.8 % (50-80); RED BLOOD COUNT 4.13 10^6/uL (4.20-5.40)
[2019-10-06 04:39] LABS: PLATELET MORPHOLOGY COMMENT NORMAL MORPHOLOGY (NORM); RBC MORPHOLOGY COMMENT NORMAL MORPHOLOGY (NORM); WBC MORPHOLOGY COMMENT NORMAL MORPHOLOGY (NORM)
[2019-10-06 05:02] LABS: BLOOD UREA NITROGEN 14 mg/dL (7-22); BUN/CREATININE RATIO 23.33 (6-20); SERUM ALBUMIN 3.6 g/dL (3.5-4.8)
[2019-10-06 07:31] VITALS: RESP 24
[2019-10-06] MEDS: Lactated Ringers 1,000 ML PRIMARY IV SCH (08:23)
[2019-10-06] MEDS ORDERED: MORPHINE SULFATE 2 MG/1 ML IVP PRN (10:39)
[2019-10-06 12:41] VITALS: BP 131/60; TEMP 98.9; O2SAT 95
[2019-10-06] MEDS: ENOXAPARIN SODIUM 60 MG/0.6 ML SYRINGE SUBCUT SCH (13:38)
== END 2019-10-06 13:48 | DRG 948 ==
LOC: ER 07:37 → MED/SURG 12:22
PROVIDERS: ADMIT Internal Medicine; ATTEND Internal Medicine